=== PATIENT | male | born 1950 | race Caucasian/White ===

== ENCOUNTER 2018-10-16 20:17 | Outpatient (CLI) | payer OTHER | END 2018-10-16 20:18 | disposition critical access hospital (66) | LOC: EMS 20:17 | PROVIDERS: ATTEND Surgery | DX: R51 Headache (principal); M25.551 Pain in right hip; R07.81 Pleurodynia; W01.198A Fall on same level from slipping, tripping and stumbling with subsequent striking against other object, initial encounter; Y93.01 Activity, walking, marching and hiking; Y92.002 Bathroom of unspecified non-institutional (private) residence as the place of occurrence of the external cause; Z79.02 Long term (current) use of antithrombotics/antiplatelets | CPT/HCPCS: A0425; A0427 ==

== ENCOUNTER 2018-10-16 20:38 | Emergency (ER) | payer OTHER ==
--- NOTE | 2018-10-16 20:45 | ED Physician Documentation ---
PD HPI Fall - Stated complaint Stated Complaint: GLF, FACIAL SWELLING, [place]UR[place], DIZZY - History obtained from History obtained from: Patient, Family - History of Present Illness Mechanism of injury: Slipped Fall distance: Standing position Where injury occurred: Home Timing - onset: Today (tonight) Injury(ies) location: Head, Face Quality of pain: Pain Associated symptoms: Neck pain. No: LOC, AMS, Amnesia Contributing factors: Anticoagulated Recently seen: Other (dental extraction yesterday) - Additional information Additional information: slipped and fell when he walked into the bathroom at home, fell into the adjacent bathtub. He denies LOC, c/o left facial pain and left-sided headache. BS 410 by medics. He is on Plavix. Review of Systems Eyes: reports: Reviewed and negative Throat: reports: Dental pain / toothache (mild pain and swelling left jaw (dental extraction yesterday)) Cardiac: reports: Reviewed and negative Respiratory: reports: Reviewed and negative GI: reports: Reviewed and negative Musculoskeletal: reports: Neck pain, Pain with weight bearing Neurologic: reports: Focal weakness (left-sided weakness (chronic due to CVA)), Headache, Head injury. denies: Generalized weakness, Numbness, LOC PD PAST MEDICAL HISTORY - Past Medical History Past Medical History: Yes Cardiovascular: Hypertension Neuro: CVA Endocrine/Autoimmune: Type 2 diabetes - Past Surgical History Past Surgical History: No - Present Medications Home Medications: Ambulatory Orders Medication Instructions Recorded Confirmed Acetaminophen 2 tab PO BID 10/16/18 10/16/18 Atorvastatin Calcium 20 mg PO DAILY PM 10/16/18 10/16/18 Carvedilol 2 tab PO BID 10/16/18 10/16/18 Clopidogrel [Plavix] 75 mg PO DAILY 10/16/18 10/16/18 Duloxetine HCl 60 mg PO DAILY 10/16/18 10/16/18 Folic Acid 1 mg PO DAILY 10/16/18 10/16/18 Glipizide [Glipizide Xl] 2.5 mg PO BID 10/16/18 10/16/18 Hydroxychloroquine [Plaquenil] 2 tab PO DAILY 10/16/18 10/16/18 Latanoprost/Pf [Latanoprost 0.005% 1 drops OP DAILY PM 10/16/18 10/16/18 Eye Drop] Loratadine 10 mg PO DAILY 10/16/18 10/16/18 Losartan [Cozaar] 10/16/18 Methotrexate 10/16/18 Methylphenidate HCl 20 mg PO BID 10/16/18 10/16/18 [Methylphenidate HCl ER] Oxymetazoline HCl [Afrin] 15 ml NS 10/16/18 Polyethylene Glycol 3350 [Miralax] 1 packet PO PRN PRN 10/16/18 10/16/18 Pregabalin [Lyrica] 100 mg PO BID 10/16/18 10/16/18 Psyllium [Metamucil] 1 packet PO DAILY 10/16/18 10/16/18 Tamsulosin [Flomax] 0.4 mg PO DAILY PM 10/16/18 10/16/18 Tramadol HCl 50 mg PO PRN PRN 10/16/18 10/16/18 buPROPion HCl [Bupropion HCl] 3 tab PO DAILY 10/16/18 10/16/18 sulfaSALAzine [Azulfidine] 500 mg PO BID 10/16/18 10/16/18 - Allergies Allergies/Adverse Reactions: Allergies Allergy/AdvReac Type Severity Reaction Status Date / Time ciprofloxacin Allergy Unknown Verified 10/16/18 21:08 hydrochlorothiazide Allergy Unknown Verified 10/16/18 21:08 ketoconazole Allergy Unknown Verified 10/16/18 21:08 metoclopramide Allergy Unknown Verified 10/16/18 21:08 - Living Situation Living Situation: reports: With family Living Arrangement: reports: At home PD ED PE NORMAL - Vitals Vital signs reviewed: Yes - General General: Alert and oriented X 3, No acute distress, Well developed/nourished - HEENT HEENT: PERRL, EOMI - Neck Neck: No bony TTP - Cardiac Cardiac: RRR, No murmur - Respiratory Respiratory: No respiratory distress, Clear bilaterally - Abdomen Abdomen: Soft, Non tender - Back Back: No spinal TTP - Derm Derm: Normal color, Warm and dry - Extremities Extremities: No deformity, No tenderness to palpate, No edema - Neuro Neuro: Alert and oriented X 3, strategic communications specialist 2-12 intact, No sensory deficit, Normal speech, Other (mild LUE/LLE weakness (4/5), not new per patient) Eye Opening: Spontaneous Motor: Obeys Commands Verbal: Oriented GCS Score: 15 Results - Vitals Vitals: Oxygen O2 Source Room air - Labs Labs: Laboratory Tests 10/16/18 10/16/18 10/16/18 20:51 20:51 23:50 WBC 11.6 H RBC 4.99 Hgb 15.7 Hct 46.3 MCV 92.8 MCH 31.5 H MCHC 33.9 RDW 12.4 Plt Count 141 MPV 10.9 Neut # (Auto) 8.6 H Lymph # (Auto) 2.0 [place] # (Auto) 0.8 Eos # (Auto) 0.1 Baso # (Auto) 0.0 Absolute Nucleated RBC 0.00 Nucleated RBC % 0.0 Sodium 129 L Potassium 4.2 Chloride 93 L Carbon Dioxide 24 Anion Gap 12.0 BUN 55 H Creatinine 2.1 H Estimated GFR (MDRD) 32 L Glucose 416 H POC Whole Bld Glucose 370 H Calcium 9.2 - Rads (name of study) CT head Radiology: Prelim report reviewed, See rad report CT cervical spine Radiology: Prelim report reviewed, See rad report CT facial bones Radiology: Prelim report reviewed, See rad report PD MEDICAL DECISION MAKING - ED course Complexity details: reviewed results, re-evaluated patient, considered differential, d/w patient, d/w family Departure - Departure Disposition: 01 Home, Self Care Clinical Impression: Hyperglycemia Fall Qualifiers: Encounter type: initial encounter Qualified Code(s): W19.XXXA - Unspecified fall, initial encounter Condition: Good Health Concerns: fall, head injury, high blood sugar, low blood pressure Plan of Treatment: IV fluids, insulin. Follow up with primary care provider, return if worse Care Goals: improvement in blood sugar levels, prevention of recurrence of fall Assessment: see diagnosis Instructions: ED Hyperglycemia Diabetic, ED Fall Uncertain Cause, ED Insufficiency Renal Comments: Follow up with your primary care provider. You need to discuss the high blood sugar as well as the abnormal kidney tests. Your kidney tests today are as follows: BUN: 55 creatinine: 2.1 Discharge Date/Time: 10/17/18 00:53
[2018-10-16 21:05] LABS: BASOPHILS % (AUTO) 0.3 %; EOSINOPHILS # (AUTO) 0.1 10^3/uL (0.0-0.7); EOSINOPHILS % (AUTO) 0.4 %; HGB - HEMOGLOBIN 15.7 g/dL (14.0-18.0); LYMPHOCYTES % (AUTO) 17.1 %; MEAN CORPUSCULAR HEMOGLOBIN 31.5 pg (27.0-31.0); MEAN CORPUSCULAR HGB CONC 33.9 g/dL (32.0-36.0); MEAN CORPUSCULAR VOLUME 92.8 fL (80.0-94.0); MEAN PLATELET VOLUME 10.9 fL (7.4-11.4); MONOCYTES # (AUTO) 0.8 10^3/uL (0.0-1.0); MONOCYTES % (AUTO) 7.2 %; NEUTROPHILS # (AUTO) 8.6 10^3/uL (1.5-6.6); NEUTROPHILS % (AUTO) 74.7 %; PLT - PLATELET COUNT 141 10^3/uL (130-450); RED BLOOD COUNT 4.99 10^6/uL (4.70-6.10); RED CELL DISTRIBUTION WIDTH 12.4 % (12.0-15.0); WHITE BLOOD COUNT 11.6 x10^3/uL (4.8-10.8)
[2018-10-16 21:13] LABS: CALCIUM 9.2 mg/dL (8.5-10.3); CREATININE 2.1 mg/dL (0.6-1.2)
--- NOTE | 2018-10-16 21:39 | CT Report ---
Reason: fall, head injury, on Plavix Procedure Date: 10/16/2018 Accession Number: [id number] / [id number] Procedure: CT - HEAD WO CPT Code: FULL RESULT: EXAM: CT HEAD EXAM DATE: 10/16/2018 09:20 PM. CLINICAL HISTORY: 68-year-old male. Fall, head injury, on Plavix. COMPARISON: None. TECHNIQUE: Multiaxial CT images were obtained from the foramen magnum to the vertex. Reformats: Sagittal and coronal. IV contrast: None. In accordance with CT protocol optimization, one or more of the following dose reduction techniques were utilized for this exam: automated exposure control, adjustment of mA and/or KV based on patient size, or use of iterative reconstructive technique. FINDINGS: Parenchyma: No intraparenchymal hemorrhage. No evidence of mass, midline shift, or CT findings of acute infarction. [place]-white differentiation is distinct. Diffuse chronic microangiopathic white matter changes are evident. Chronic infarction inferior right basal ganglia and mesial right temporal lobe. Extraaxial Spaces: Normal for age. No subdural or epidural collections identified. Ventricles: The ventricles and cortical sulci are enlarged, consistent with age-related tissue loss. Sinuses and orbits: Imaged paranasal sinuses, orbits, and mastoids show no significant abnormality. Bones: No evidence of fracture or calvarial defect. Other: None. IMPRESSION: Generalized age-related cortical atrophic changes without evidence of acute intracranial abnormality. Chronic infarction inferior right basal ganglia and mesial right temporal lobe. RADIA
--- NOTE | 2018-10-16 21:58 | CT Report ---
Reason: fall, left facial injury Procedure Date: 10/16/2018 Accession Number: [id number] / [id number] Procedure: CT - MAXILLOFACIAL WO CPT Code: FULL RESULT: EXAM: CT MAXILLOFACIAL WITHOUT CONTRAST EXAM DATE: 10/16/2018 09:20 PM. CLINICAL HISTORY: Fall, left facial injury. COMPARISONS: None. TECHNIQUE: Thin-section axial images were acquired of the face without contrast. Post-processing: Coronal and sagittal reformats. Other: None. In accordance with CT protocol optimization, one or more of the following dose reduction techniques were utilized for this exam: automated exposure control, adjustment of mA and/or KV based on patient size, or use of iterative reconstructive technique. FINDINGS: Soft Tissue: The infratemporal fossa and parapharyngeal spaces are unremarkable. Orbits: Symmetric and unremarkable. Bones: No fracture or bone lesion. Temporomandibular Joints: The temporomandibular joints are symmetric and normally located. Sinuses: Normal. No mucosal thickening or fluid levels. Other: None. IMPRESSION: No evidence of maxillofacial fracture. RADIA
--- NOTE | 2018-10-16 22:00 | CT Report ---
Reason: fall, neck pain Procedure Date: 10/16/2018 Accession Number: [id number] / [id number] Procedure: CT - CERVICAL SPINE WO CPT Code: FULL RESULT: EXAM: CT CERVICAL SPINE WITHOUT CONTRAST DATE: 10/16/2018 09:20 PM. HISTORY: 68-year-old on blood thinners with fall presenting with neck pain. Evaluate for cervical pathology. COMPARISONS: None. TECHNIQUE: Thin-section axial images were acquired of the cervical spine without contrast. Post-processing: Coronal and sagittal reformats. Other: None. In accordance with CT protocol optimization, one or more of the following dose reduction techniques were utilized for this exam: automated exposure control, adjustment of mA and/or KV based on patient size, or use of iterative reconstructive technique. FINDINGS: Alignment: Straightening of the normal cervical lordosis. No scoliosis or spondylolisthesis. Bones: No fracture or bone lesion. There is fusion of the right C3-C4 facet. Interspace Levels/Facets: C1-C2: Small posterior pannus with slight indentation of the thecal sac. C2-C3: Small central disk osteophyte complex. Bilateral uncovertebral osteophyte and arthritic facet disease, greater on the left. Mild spinal canal stenosis. Mild left neural foraminal narrowing. C3-C4: Small broad-based disk osteophyte complex. Bilateral uncovertebral osteophyte and arthritic facet disease. Mild to moderate spinal canal stenosis. Moderate right and mild to moderate left neural foraminal narrowing. C4-C5: Small broad-based disk osteophyte complex. Bilateral uncovertebral osteophyte and arthritic facet disease. Mild to moderate spinal canal stenosis. Mild bilateral neural foraminal narrowing. C5-C6: Small broad-based disk osteophyte complex. Bilateral uncovertebral osteophyte and arthritic facet disease. Mild spinal canal stenosis. No definite neural foraminal narrowing. C6-C7: Small broad-based disk osteophyte complex. Bilateral arthritic facet disease. Mild spinal canal stenosis. No definite neural foraminal narrowing. C7-T1: Bilateral arthritic facet disease. No spinal canal stenosis. No definite neural foraminal narrowing. Musculature: Normal. No fatty atrophy. Other: There is a left thyroid lobe hypodense lesion seen measuring up to 10 mm ( series 15, image 77). Minimal pleural parenchymal scarring of the visualized lung apices. IMPRESSION: 1. No definite acute fracture or traumatic subluxation seen. 2. Straightening of the normal cervical lordosis. 3. Multilevel degenerative changes, as detailed above. RADIA
[2018-10-16] MEDS ORDERED: SODIUM CHLORIDE 0.9% 500 ML IV STA (23:48)
[2018-10-16] MEDS ORDERED: INSULIN REGULAR HUMAN 100 UNIT/1 ML 10 ML MDV IVP STA (23:58)
[2018-10-17 00:21] VITALS: BP 119/69
[2018-10-17] MEDS ORDERED: MAGNESIUM CITRATE 296 ML BOTTLE PO STA (00:33)
== END 2018-10-17 00:53 | disposition home or self-care (01) ==
LOC: EDUNIT# → ED 20:38
DX: E11.65 Type 2 diabetes mellitus with hyperglycemia (principal); Z79.84 Long term (current) use of oral hypoglycemic drugs; M54.2 Cervicalgia; R51 Headache; W01.198A Fall on same level from slipping, tripping and stumbling with subsequent striking against other object, initial encounter; Y93.01 Activity, walking, marching and hiking; Y92.002 Bathroom of unspecified non-institutional (private) residence as the place of occurrence of the external cause; M25.78 Osteophyte, vertebrae; I69.354 Hemiplegia and hemiparesis following cerebral infarction affecting left non-dominant side; I10 Essential (primary) hypertension; Z79.02 Long term (current) use of antithrombotics/antiplatelets
CPT/HCPCS: 36415; 70450; 70486; 72125; 80048; 85025; 96360; 99283; 99285; A9270; J1815

== ENCOUNTER 2020-02-26 08:32 | Outpatient (CLI) | payer OTHER | END 2020-02-26 08:33 | disposition short-term general hospital (02) | LOC: EMS 08:32 | PROVIDERS: ATTEND Surgery | DX: M54.2 Cervicalgia (principal); R51.9 Headache, unspecified; S51.012A Laceration without foreign body of left elbow, initial encounter; W06.XXXA Fall from bed, initial encounter; Y92.10 Unspecified residential institution as the place of occurrence of the external cause | CPT/HCPCS: A0425; A0429 ==

== ENCOUNTER 2020-05-07 09:43 | Outpatient (CLI) | payer OTHER ==
--- OUTSIDE RECORDS SUMMARY | 2020-05-11 01:53 | EXTERNAL MEDICAL SUMMARY RPT | Continuity of Care Document ---
:1950 Demographics Phone Unavailable Preferred Language Eritrean Marital Status Unknown Orthodoxy Affiliation Unknown Race Unknown Ethnic Group Unknown Author Organization [place] Address [address] [place] [address] Phone Care Team Providers Name Role Phone Bot[place] Unavailable Unavailable Problems date description facility Never smoked tobacco (finding) [facility] Patient Education [facility] Finding [facility] Allergies date description facility ciprofloxacin [facility] hydrochlorothiazide [facility] ketoconazole [facility] metformin [facility] metoclopramide [facility] ATORVASTATIN [facility] DIPHENHYDRAMINE [facility] FLUVASTATIN [facility] PRAVASTATIN [facility] SIMVASTATIN [facility] SULFADIAZINE [facility] NO KNOWN ALLERGIES [facility] NO KNOWN ENVIRONMENTAL ALLERGIES [facility] metformin [facility]opramide [facility] Procedures date description facility 2020-02-26 00:00:00 [facility] date description facility 2020-02-26 00:00:00 [facility] date description facility 2020-02-26 00:00:00 General Physician [facility] date description facility 2020-02-26 00:00:00 [facility] Results Social History date description facility [id number] Never smoked tobacco (finding) [facility] Social History date description facility [id number] Never smoked tobacco (finding) [facility] date description facility [id number]
== END 2020-05-07 09:44 | disposition critical access hospital (66) ==
LOC: EMS 09:43
PROVIDERS: ATTEND Surgery
DX: M54.5 Low back pain (principal); R10.9 Unspecified abdominal pain
CPT/HCPCS: A0425; A0429

== ENCOUNTER 2020-05-07 10:01 | Emergency (ER) | payer OTHER ==
[2020-05-07] MEDS ORDERED: SODIUM CHLORIDE 0.9% 1,000 ML IV STA (10:36)
[2020-05-07] MEDS ORDERED: KETOROLAC 30 MG/ML VIAL IVP STA (10:36)
--- NOTE | 2020-05-07 10:39 | ED Physician Documentation ---
PD HPI BACK PAIN - Stated complaint Stated Complaint: RT SIDE ABD PX - Chief complaint Chief Complaint: Back Pain - History obtained from History obtained from: Patient - History of Present Illness Timing - onset: How many months ago (1) Timing - duration: Months (1) Timing - details: Abrupt onset, Still present Pain level max: 10 Pain level now: 7 Location: Mid, Right Quality: Pain, Spasm, Sharp Associated symptoms: No: Fever, Weakness, Numbness, Incontinent of urine, Unable to urinate, Hematuria, Incontinent of stool Improves with: Rest, Position Worsened by: Movement Contributing factors: Twisting Similar symptoms before: No diagnosis Recently seen: Not recently seen - Additional information Additional information: 69-year-old diabetic male who is s/p CVA with some left hemiparesis has developed some pain in his right flank that started when he was on the commode about a month ago and bent to the right side to pick something up and he had a sharp spasm of pain in his back and he has had undulating symptoms since then. Today he went to get into his refrigerator and bent over and had severe acute pain in his back on the right side. He called the ambulance and was brought to the hospital for treatment and evaluation. Patient states that he has not otherwise been ill he has not had vomiting or diarrhea. He does not check his blood sugar. He denies any fever or cough. Review of Systems Constitutional: denies: Fever, Chills, Myalgias Ears: denies: Ear pain Nose: denies: Rhinorrhea / runny nose, Congestion Throat: denies: Sore throat Cardiac: denies: Chest pain / pressure, Palpitations Respiratory: denies: Dyspnea, Cough GI: denies: Abdominal Pain, Nausea, Vomiting, Diarrhea : reports: Frequency. denies: Dysuria Skin: denies: Rash Musculoskeletal: reports: Back pain. denies: Neck pain, Extremity pain Neurologic: reports: Focal weakness (persistent to the left side not changed.). denies: Generalized weakness PD PAST MEDICAL HISTORY - Past Medical History Cardiovascular: Hypertension Neuro: CVA Endocrine/Autoimmune: Type 2 diabetes HEENT: Glaucoma Musculoskeletal: Osteoarthritis, Rheumatoid arthritis - Past Surgical History Past Surgical History: No General: Cholecystectomy, Colonoscopy, EGD Ortho: Carpal Tunnel surgery, Spine surgery HEENT: Cataracts - Present Medications Home Medications: Ambulatory Orders Medication Instructions Recorded Confirmed Atorvastatin Calcium 20 mg PO DAILY PM 10/16/18 10/16/18 Clopidogrel [Plavix] 75 mg PO DAILY 10/16/18 10/16/18 Folic Acid 1 mg PO DAILY 10/16/18 10/16/18 Glipizide [Glipizide Xl] 2.5 mg PO BID 10/16/18 10/16/18 Hydroxychloroquine [Plaquenil] 2 tab PO DAILY 10/16/18 10/16/18 Losartan [Cozaar] 10/16/18 Methotrexate 10/16/18 Methylphenidate HCl 20 mg PO BID 10/16/18 10/16/18 [Methylphenidate HCl ER] Tamsulosin [Flomax] 0.4 mg PO DAILY PM 10/16/18 10/16/18 Tramadol HCl 50 mg PO PRN PRN 10/16/18 10/16/18 buPROPion HCL [Bupropion HCl] 3 tab PO DAILY 10/16/18 10/16/18 sulfaSALAzine [Azulfidine] 500 mg PO BID 10/16/18 10/16/18 Amox/Clav 875/125 [Augmentin] 1 each PO Q12H #14 tablet 05/07/20 Hydrocodone/Acetaminophen [[place] 1 - 2 each PO Q6HR PRN #14 tablet 05/07/20 5-325 Tablet] Melatonin 3 mg PO 05/07/20 05/07/20 Ondansetron [Zuplenz] 4 mg PO 05/07/20 - Allergies Allergies/Adverse Reactions: Allergies Allergy/AdvReac Type Severity Reaction Status Date / Time ciprofloxacin Allergy Unknown Verified 10/16/18 21:08 hydrochlorothiazide Allergy Unknown Verified 10/16/18 21:08 ketoconazole Allergy Unknown Verified 10/16/18 21:08 metformin Allergy Unknown Verified 05/07/20 10:36 metoclopramide Allergy Unknown Verified 10/16/18 21:08 - Social History Does the pt smoke?: No Smoking Status: Never smoker Does the pt drink ETOH?: No - Immunizations Immunizations are current?: Yes PD ED PE NORMAL - Vitals Vital signs reviewed: Yes (normal ) - General General: Alert and oriented X 3, No acute distress, Well developed/nourished - HEENT HEENT: Atraumatic, PERRL, EOMI - Neck Neck: Supple, no meningeal sign, No bony TTP - Cardiac Cardiac: RRR, No murmur - Respiratory Respiratory: No respiratory distress, Clear bilaterally - Abdomen Abdomen: Normal bowel sounds, Soft, Non tender - Back Back: No spinal TTP, Other (There is tenderness to the right flank to palpation and with movement. The pain seems more medial than the kidney both sonographically and physically ) - Derm Derm: Normal color, Warm and dry, No rash - Extremities Extremities: No deformity, No edema - Neuro Neuro: Alert and oriented X 3, resource paraprofessional 2-12 intact, Normal speech, Other (Left black- paresis is appreciated on the Left upper ext >>than the left lower ext. ) Eye Opening: Spontaneous Motor: Obeys Commands Verbal: Oriented GCS Score: 15 - Psych Psych: Normal mood, Normal affect Results - Vitals Vitals: Vital Signs - 24 hr 05/07/20 05/07/20 10:12 11:09 Temperature 36.9 C Heart Rate 79 74 Respiratory 18 16 Rate Blood Pressure 129/71 170/89 H O2 Saturation 99 97 Oxygen O2 Source Room air - Labs Labs: Laboratory Tests 05/07/20 05/07/20 05/07/20 11:04 11:04 11:17 WBC 7.2 RBC 4.77 Hgb 14.4 Hct 43.2 MCV 90.6 MCH 30.2 MCHC 33.3 RDW 13.9 Plt Count 125 L MPV 10.4 Neut # (Auto) 5.0 Lymph # (Auto) 1.5 [place] # (Auto) 0.6 Eos # (Auto) 0.0 Baso # (Auto) 0.0 Absolute Nucleated RBC 0.00 Nucleated RBC % 0.0 Sodium 136 Potassium 4.7 Chloride 100 L Carbon Dioxide 25 Anion Gap 11.0 BUN 13 Creatinine 1.0 Estimated GFR (MDRD) 74 L Glucose 212 H Calcium 9.2 Total Bilirubin 0.5 AST 22 ALT 20 Alkaline Phosphatase 72 Total Protein 6.7 Albumin 3.8 Globulin 2.9 Albumin/Globulin Ratio 1.3 Lipase 22 Urine Color YELLOW Urine Clarity HAZY Urine pH 7.0 Ur Specific [place] 1.020 Urine Protein NEGATIVE Urine Glucose (UA) 500 H Urine Ketones NEGATIVE Urine Occult Blood NEGATIVE Urine Nitrite NEGATIVE Urine Bilirubin NEGATIVE Urine Urobilinogen 0.2 (NORMAL) Ur Leukocyte Esterase MODERATE H Urine RBC 0-5 Urine WBC >25 H Ur Squamous Epith Cells NONE SEEN Urine Bacteria Moderate H Ur Microscopic Review INDICATED Urine Culture Comments INDICATED - Rads (name of study) CT ab/pel without Radiology: Prelim report reviewed (Impression: 1. No kidney stones. No hydronephrosis. 2. Normal appendix. 3. Bladder calculus measuring 1.4 cm. Bladder is distended. Prostamegaly.), EMP read indepedently, See rad report Procedures - Bedside sono Bedside sono by EMP: With bedside ultrasound the right kidney is imaged it is sonographically nontender the tenderness does appear to be more medial over the back than the kidney itself. There is no evidence of hydronephrosis. PD MEDICAL DECISION MAKING - ED course Complexity details: reviewed old records, reviewed results, re-evaluated patient, considered differential, d/w patient ED course: 69-year-old diabetic male s/p CVA with left hemiparesis has developed right flank pain of about 1 months duration that appears to be movement related. Additionally the patient is found to have infection in the urine. He also has urinary retention with a postvoid residual of over 800 mL. A Rock catheter is placed he is given a gram of Rocephin intravenously we will treat infection and leave the catheter in place. The patient has had urinary retention previously and does have a urologist. Departure - Departure Disposition: 01 Home, Self Care Clinical Impression: Urinary retention, Flank pain, Dehydration Urinary tract infection Qualifiers: Urinary tract infection type: acute cystitis Hematuria presence: without hematuria Qualified Code(s): N30.00 - Acute cystitis without hematuria Condition: Stable Instructions: ED Dehydration, ED Flank Pain Uncertain Cause, ED Catheter Care Rock, ED Retention Urinary Male, ED UTI Cystitis Male Follow-Up: Mega Kaye MD [Provider Admit Priv/Credential] - Prescriptions: Hydrocodone/Acetaminophen [[place] 5-325 Tablet] 1 - 2 each PO Q6HR PRN #14 tablet PRN Reason: Pain Amox/Clav 875/125 [Augmentin] 1 each PO Q12H #14 tablet
[2020-05-07 11:10] VITALS: BP 170/89
[2020-05-07 11:16] LABS: BASOPHILS % (AUTO) 0.4 %; EOSINOPHILS % (AUTO) 0.6 %; HGB - HEMOGLOBIN 14.4 g/dL (14.0-18.0); LYMPHOCYTES # (AUTO) 1.5 10^3/uL (1.5-3.5); LYMPHOCYTES % (AUTO) 20.8 %; MEAN CORPUSCULAR HEMOGLOBIN 30.2 pg (27.0-31.0); MEAN CORPUSCULAR HGB CONC 33.3 g/dL (32.0-36.0); MEAN CORPUSCULAR VOLUME 90.6 fL (80.0-94.0); MEAN PLATELET VOLUME 10.4 fL (7.4-11.4); MONOCYTES # (AUTO) 0.6 10^3/uL (0.0-1.0); MONOCYTES % (AUTO) 8.1 %; NEUTROPHILS % (AUTO) 69.8 %; PLT - PLATELET COUNT 125 10^3/uL (130-450); RED BLOOD COUNT 4.77 10^6/uL (4.70-6.10); RED CELL DISTRIBUTION WIDTH 13.9 % (12.0-15.0); WHITE BLOOD COUNT 7.2 x10^3/uL (4.8-10.8)
--- NOTE | 2020-05-07 11:20 | CT Report ---
PROCEDURE: Abdomen/Pelvis WO INDICATIONS: R flank pain TECHNIQUE: Noncontrast 5 mm thick sections acquired from the diaphragms to the symphysis. 5 mm coronal and sagi ttal reformats were then performed. For radiation dose reduction, the following was used: automated exposure control, adjustment of mA and/or kV according to patient size. COMPARISON: None. FINDINGS: Image quality: Excellent. ABDOMEN: Lung bases: Lung bases are clear. Heart size is normal. Solid organs: Liver and spleen are normal in size. Gallbladder is surgically absent. Pancreas is n ormal in contours. No adrenal nodules. Kidneys are normal in size, without hydronephrosis or nephro lithiasis. Renal artery vascular calcifications. Peritoneum and bowel: Unenhanced bowel loops demonstrate normal wall thickness and caliber. Normal a ppendix. No free fluid or air. Nodes and vessels: No retroperitoneal or mesenteric adenopathy by size criteria. Aorta and inferior vena cava are normal in caliber. Duplicated right inferior artery. Miscellaneous: Small fat-containing periumbilical hernia. PELVIS: Genitourinary: Bladder is mildly distended. Tiny urachal remnant. Bladder calculus measuring 1.4 cm. Prostatomegaly. Penile calcifications. Miscellaneous: No inguinal hernias or adenopathy. Bones: No suspicious bony lesions. No vertebral body compression fractures. IMPRESSION: 1. No kidney stones. No hydronephrosis. 2. Normal appendix. 3. Bladder calculus measuring 1.4 cm. Bladder is distended. Prostatomegaly. Reviewed by: Ubaldo Garcia MD on 05/07/2020 10:19 AM [facility] Approved by: Ubaldo Garcia MD on 05/07/2020 10:19 AM [facility] Station ID: [id number]
[2020-05-07 11:24] LABS: BILIRUBIN,URINE NEGATIVE (NEGATIVE); GLUCOSE, URINE (UA) 500 mg/dL (NEGATIVE); KETONES,URINE (UA) NEGATIVE (NEGATIVE); LEUKOCYTE ESTERASE, URINE MODERATE (NEGATIVE); NITRITE,URINE NEGATIVE (NEGATIVE); OCCULT BLOOD,URINE NEGATIVE (NEGATIVE); PROTEIN,URINE NEGATIVE (NEGATIVE); UROBILINOGEN,URINE 0.2 (NORMAL) E.U./dL (NORMAL)
[2020-05-07 11:25] LABS: CLARITY,URINE HAZY (CLEAR)
[2020-05-07 11:28] LABS: ALBUMIN 3.8 g/dL (3.2-5.5); ALBUMIN/GLOBULIN RATIO 1.3 (1.0-2.2); BILIRUBIN,TOTAL 0.5 mg/dL (0.2-1.0); CALCIUM 9.2 mg/dL (8.5-10.3); TOTAL PROTEIN 6.7 g/dL (6.7-8.2)
[2020-05-07 11:33] LABS: BACTERIA,URINE Moderate /HPF (None Seen); RBC,URINE 0-5 /HPF (0-5); SQUAMOUS EPITHELIAL CELL,UR NONE SEEN (<= Few)
[2020-05-07] MEDS ORDERED: cefTRIAXone 1 GM in SODIUM CHLORIDE 0.9% MINIBAG 100 ML IV STA (11:55)
--- OUTSIDE RECORDS SUMMARY | 2020-05-11 01:50 | EXTERNAL MEDICAL SUMMARY RPT | Continuity of Care Document ---
:1950 Demographics Phone Unavailable Preferred Language Tajik Marital Status Unknown Hoahaoism Affiliation Unknown Race Unknown Ethnic Group Unknown Author Organization [facility] Address [address] [place] [address] Phone Care Team Providers Name Role Phone [place] Unavailable Unavailable Problems date description facility Never smoked tobacco (finding) [facility] Patient Education [facility] Finding [facility] Allergies date description facility ciprofloxacin [facility] hydrochlorothiazide [facility] ketoconazole [facility] metformin [facility] metoclopramide [facility] ATORVASTATIN [facility] DIPHENHYDRAMINE [facility] FLUVASTATIN SODIUM [facility] PRAVASTATIN [facility] SIMVASTATIN [facility] SULFADIAZINE [facility] NO KNOWN ALLERGIES [facility] NO KNOWN ENVIRONMENTAL ALLERGIES [facility] OTHER [facility] NO KNOWN ALLERGIES [facility] CEFUROXIME AXETIL [facility] GABAPENTIN [facility] CYCLOBENZAPRINE [facility] DICYCLOMINE [facility] LISINOPRIL [facility] OXYMETAZOLINE-MENTHOL [facility] hydrochlorothiazide [facility] ciprofloxacin [facility] ketoconazole [facility] metformin [facility] metoclopramide [facility] Procedures date description facility 2020-02-26 00:00:00 [facility] date description facility 2020-02-26 00:00:00 [facility] date description facility 2020-02-26 00:00:00 General Physician [facility] date description facility 2020-02-26 00:00:00 [facility] Results Social History date description facility [id number] Never smoked tobacco (finding) [facility] Social History date description facility [id number] Never smoked tobacco (finding) [facility] date description facility [id number]
== END 2020-05-07 13:15 | disposition home or self-care (01) ==
LOC: EDUNIT# → ED 10:01
DX: N30.00 Acute cystitis without hematuria (principal); R33.9 Retention of urine, unspecified; N21.0 Calculus in bladder; E86.0 Dehydration; I69.354 Hemiplegia and hemiparesis following cerebral infarction affecting left non-dominant side; I10 Essential (primary) hypertension; E11.9 Type 2 diabetes mellitus without complications; Z79.84 Long term (current) use of oral hypoglycemic drugs; Z79.02 Long term (current) use of antithrombotics/antiplatelets
CPT/HCPCS: 36415; 51702; 74176; 80053; 81001; 81003; 81599; 83690; 85025; 87077; 87086; 87181; 99284

== ENCOUNTER 2020-05-14 11:30 | Outpatient (CLI) | payer MEDICARE, OTHER | END 2020-05-14 11:31 | disposition critical access hospital (66) | LOC: EMS 11:30 | PROVIDERS: ATTEND Surgery | DX: R11.0 Nausea (principal) | CPT/HCPCS: A0425; A0429 ==

== ENCOUNTER 2020-05-14 11:48 | Emergency (ER) | payer MEDICARE, OTHER ==
[2020-05-14] MEDS ORDERED: oxyCODONE 5 MG TABLET PO STA (12:18)
--- NOTE | 2020-05-14 12:18 | ED Physician Documentation ---
PD HPI Fall - Stated complaint Stated Complaint: FLANK PX - Chief complaint Chief Complaint: UTI - History obtained from History obtained from: Patient, EMS - Additional information Additional information: 69-year-old gentleman with history of diabetes, stroke with left-sided deficits, history of prostate cancer presents by ambulance complaining of about 2 weeks of episodic right-sided flank pain. He was seen here for same a week ago. He had pyuria, a CT of the abdomen pelvis demonstrating a bladder calculus measuring 1.4 cm with a distended bladder. Relatively unremarkable blood work. Rock catheter was placed at that time and he was given a dose of Rocephin. Subsequent to that was started on Augmentin and hydrocodone as needed for pain. The culture grew Morganella, they only commented on sensitivity to Zosyn. Otherwise they were unable to elucidate any sensitivities. He continues to have right flank pain, episodic and sharp and nonradiating. He also has felt lightheaded since then and has fallen several times. He hurt his right low back in one of the falls. He hit his head, noting he is on Plavix, but does not really feel like his head is injured per se. Review of Systems Ten Systems: 10 systems reviewed and negative Constitutional: denies: Fever, Chills Nose: reports: Reviewed and negative Throat: reports: Reviewed and negative Cardiac: reports: Reviewed and negative Respiratory: reports: Reviewed and negative GI: reports: Reviewed and negative PD PAST MEDICAL HISTORY - Past Medical History Cardiovascular: Hypertension Neuro: CVA Endocrine/Autoimmune: Type 2 diabetes HEENT: Glaucoma Musculoskeletal: Osteoarthritis, Rheumatoid arthritis - Past Surgical History Past Surgical History: No General: Cholecystectomy, Colonoscopy, EGD Ortho: Carpal Tunnel surgery, Spine surgery HEENT: Cataracts - Present Medications Home Medications: Ambulatory Orders Medication Instructions Recorded Confirmed Atorvastatin Calcium 20 mg PO DAILY PM 10/16/18 10/16/18 Clopidogrel [Plavix] 75 mg PO DAILY 10/16/18 10/16/18 Folic Acid 1 mg PO DAILY 10/16/18 10/16/18 Glipizide [Glipizide Xl] 2.5 mg PO BID 10/16/18 10/16/18 Hydroxychloroquine [Plaquenil] 2 tab PO DAILY 10/16/18 10/16/18 Losartan [Cozaar] 10/16/18 Methotrexate 10/16/18 Methylphenidate HCl 20 mg PO BID 10/16/18 10/16/18 [Methylphenidate HCl ER] Tamsulosin [Flomax] 0.4 mg PO DAILY PM 10/16/18 10/16/18 Tramadol HCl 50 mg PO PRN PRN 10/16/18 10/16/18 buPROPion HCL [Bupropion HCl] 3 tab PO DAILY 10/16/18 10/16/18 sulfaSALAzine [Azulfidine] 500 mg PO BID 10/16/18 10/16/18 Amox/Clav 875/125 [Augmentin] 1 each PO Q12H #14 tablet 05/07/20 Hydrocodone/Acetaminophen [Deep Run 1 - 2 each PO Q6HR PRN #14 tablet 05/07/20 5-325 Tablet] Melatonin 3 mg PO 05/07/20 05/07/20 Ondansetron [Zuplenz] 4 mg PO 05/07/20 HYDROcod/ACETAM 5/325 [[place] 5/325] 1 - 2 tab PO Q6H PRN #15 tablet 05/14/20 - Allergies Allergies/Adverse Reactions: Allergies Allergy/AdvReac Type Severity Reaction Status Date / Time ciprofloxacin Allergy Unknown Verified 10/16/18 21:08 hydrochlorothiazide Allergy Unknown Verified 10/16/18 21:08 ketoconazole Allergy Unknown Verified 10/16/18 21:08 metformin Allergy Unknown Verified 05/07/20 10:36 metoclopramide Allergy Unknown Verified 10/16/18 21:08 - Social History Does the pt smoke?: No Smoking Status: Never smoker Does the pt drink ETOH?: No Does the pt have substance abuse?: No - Immunizations Immunizations are current?: Yes PD ED PE NORMAL - Vitals Vital signs reviewed: Yes - General General: Alert and oriented X 3, Other (He has a mild right gaze preference and is weak in the left upper extremity.) - HEENT HEENT: PERRL - Neck Neck: Supple, no meningeal sign, No bony TTP - Cardiac Cardiac: RRR, No murmur - Respiratory Respiratory: No respiratory distress, Clear bilaterally - Abdomen Abdomen: Normal bowel sounds, Soft, Non tender - Back Back: Other (Mild tenderness of the right CVA and right paralumbar musculature, hip and pelvis are nontender.) - Derm Derm: Normal color, Warm and dry - Extremities Extremities: No edema, No calf tenderness / cord - Neuro Neuro: Alert and oriented X 3, Normal speech Results - Vitals Vitals: Vital Signs - 24 hr 05/14/20 05/14/20 05/14/20 11:51 11:57 12:54 Temperature 36.9 C Heart Rate 78 78 79 Respiratory 16 16 16 Rate Blood Pressure 140/68 H 137/79 H 149/85 H O2 Saturation 99 96 97 Oxygen O2 Source Room air - Labs Labs: Laboratory Tests 05/14/20 05/14/20 05/14/20 12:12 12:12 12:46 WBC 5.8 RBC 4.69 L Hgb 14.0 Hct 43.2 MCV 92.1 MCH 29.9 MCHC 32.4 RDW 14.5 Plt Count 111 L MPV 10.0 Neut # (Auto) 3.8 Lymph # (Auto) 1.4 L Jerome # (Auto) 0.5 Eos # (Auto) 0.1 Baso # (Auto) 0.0 Absolute Nucleated RBC 0.00 Nucleated RBC % 0.0 Sodium 139 Potassium 4.3 Chloride 101 Carbon Dioxide 28 Anion Gap 10.0 BUN 11 Creatinine 1.0 Estimated GFR (MDRD) 74 L Glucose 326 H Calcium 8.8 Total Bilirubin 0.5 AST 23 ALT 19 Alkaline Phosphatase 79 Total Protein 6.6 L Albumin 3.7 Globulin 2.9 Albumin/Globulin Ratio 1.3 Lipase 30 Urine Color YELLOW Urine Clarity CLEAR Urine pH 7.5 Ur Specific [place] 1.015 Urine Protein NEGATIVE Urine Glucose (UA) >=1000 H Urine Ketones NEGATIVE Urine Occult Blood NEGATIVE Urine Nitrite NEGATIVE Urine Bilirubin NEGATIVE Urine Urobilinogen 0.2 (NORMAL) Ur Leukocyte Esterase NEGATIVE Ur Microscopic Review NOT INDICATED Urine Culture Comments NOT INDICATED - Rads (name of study) CT Head Radiology: EMP read contemporaneously (NAD) CT A/P Radiology: EMP read contemporaneously (Bladder calcification and thick bladder wall. No other acute findings.) PD MEDICAL DECISION MAKING - ED course ED course: 69-year-old gentleman presents from assisted living having had several falls in the setting of recent pyelonephritis. Urinalysis is now cleared up. He has hyperglycemia but the remainder of his labs are relatively unremarkable. White count only 5. CT imaging of the head done for head injury was negative and abdomen and pelvis for both recheck of the flank pain as well as back injury were negative except for persistent bladder calcification. Departure - Departure Disposition: 01 Home, Self Care Clinical Impression: Flank pain Fall Qualifiers: Encounter type: initial encounter Qualified Code(s): W19.XXXA - Unspecified fall, initial encounter Back contusion Qualifiers: Encounter type: initial encounter Laterality: right Qualified Code(s): S20.221A - Contusion of right back wall of thorax, initial encounter Head injury Qualifiers: Encounter type: initial encounter Qualified Code(s): S09.90XA - Unspecified injury of head, initial encounter Condition: Good Record reviewed to determine appropriate education?: Yes Instructions: ED Low Back Pain Injury Follow-Up: Mega Kaye MD [Provider Admit Priv/Credential] - Prescriptions: HYDROcod/ACETAM 5/325 [Deep Run 5/325] 1 - 2 tab PO Q6H PRN #15 tablet PRN Reason: Pain Comments: No evidence of persistent UTI but with finish out antibiotic prescription given to you by Dr. Anderson. On the last visit was recommended he follow-up with a urologist and he still should given the presence of the bladder stone. Return if worsening. Drink plenty of fluids.
[2020-05-14 12:25] LABS: BASOPHILS % (AUTO) 0.5 %; EOSINOPHILS # (AUTO) 0.1 10^3/uL (0.0-0.7); EOSINOPHILS % (AUTO) 0.9 %; LYMPHOCYTES # (AUTO) 1.4 10^3/uL (1.5-3.5); LYMPHOCYTES % (AUTO) 24.1 %; MEAN CORPUSCULAR HEMOGLOBIN 29.9 pg (27.0-31.0); MEAN CORPUSCULAR HGB CONC 32.4 g/dL (32.0-36.0); MEAN CORPUSCULAR VOLUME 92.1 fL (80.0-94.0); MONOCYTES # (AUTO) 0.5 10^3/uL (0.0-1.0); MONOCYTES % (AUTO) 9.3 %; NEUTROPHILS # (AUTO) 3.8 10^3/uL (1.5-6.6); PLT - PLATELET COUNT 111 10^3/uL (130-450); RED BLOOD COUNT 4.69 10^6/uL (4.70-6.10); RED CELL DISTRIBUTION WIDTH 14.5 % (12.0-15.0); WHITE BLOOD COUNT 5.8 x10^3/uL (4.8-10.8)
[2020-05-14 12:35] LABS: ALBUMIN 3.7 g/dL (3.2-5.5); ALBUMIN/GLOBULIN RATIO 1.3 (1.0-2.2); BILIRUBIN,TOTAL 0.5 mg/dL (0.2-1.0); CALCIUM 8.8 mg/dL (8.5-10.3); TOTAL PROTEIN 6.6 g/dL (6.7-8.2)
[2020-05-14] MEDS ORDERED: SODIUM CHLORIDE 0.9% 1,000 ML IV STA (12:35)
[2020-05-14] MEDS ORDERED: IOVERSOL 320 100 ML VIAL IVP ONE ×2 (12:47→14:37)
[2020-05-14 12:55] LABS: BILIRUBIN,URINE NEGATIVE (NEGATIVE); GLUCOSE, URINE (UA) >=1000 mg/dL (NEGATIVE); KETONES,URINE (UA) NEGATIVE (NEGATIVE); LEUKOCYTE ESTERASE, URINE NEGATIVE (NEGATIVE); NITRITE,URINE NEGATIVE (NEGATIVE); OCCULT BLOOD,URINE NEGATIVE (NEGATIVE); PH,URINE 7.5 PH (5.0-7.5); PROTEIN,URINE NEGATIVE (NEGATIVE); UROBILINOGEN,URINE 0.2 (NORMAL) E.U./dL (NORMAL)
[2020-05-14 12:56] LABS: CLARITY,URINE CLEAR (CLEAR)
--- NOTE | 2020-05-14 13:55 | CT Report ---
PROCEDURE: HEAD WO INDICATIONS: head injury TECHNIQUE: Noncontrast 4.5 mm thick angled axial sections acquired from the foramen magnum to the vertex. For r adiation dose reduction, the following was used: automated exposure control, adjustment of mA and/or kV according to patient size. COMPARISON: CT head 10/17/2018 FINDINGS: Image quality: Excellent. The ventricular system and cortical sulci demonstrate atrophy, consistent for patient's stated age. There are areas of hypodensity in the periventricular and subcortical white matter. There is no acut e intra or extra-axial fluid collection. No acute hemorrhage, mass lesion or midline shift. Brainst em is unremarkable. Globes are symmetrical. Sinuses are aerated. Osseous structures are intact. IMPRESSION: 1. No acute intracranial process. 2. Moderate atrophy and chronic microvascular ischemic changes. Reviewed by: Dalila Damico MD on 05/14/2020 1:54 PM PST Approved by: Dalila Damico MD on 05/14/2020 1:54 PM PST Station ID: [id number]
--- NOTE | 2020-05-14 14:03 | CT Report ---
PROCEDURE: Abdomen/Pelvis W INDICATIONS: R flank pain. IV only CONTRAST: IV CONTRAST: Optiray 320 ml: 100 PO CONTRAST: *NO PO CONTRAST TECHNIQUE: After the administration of IV contrast, 5 mm thick sections acquired from the diaphragms to the symp hysis. 5 mm thick coronal and sagittal reformats were acquired. For radiation dose reduction, the f ollowing was used: automated exposure control, adjustment of mA and/or kV according to patient size. COMPARISON: CT abdomen pelvis 05/07/2020 FINDINGS: Image quality: Excellent. ABDOMEN: Lung bases: Minimal left effusion, unchanged. Heart size is normal. Solid organs: Liver and spleen are normal in size and enhancement. Gallbladder has been removed Bi liary system is non dilated. Pancreas enhances normally. No adrenal nodules. Kidneys demonstrate n ormal size and enhancement, without hydronephrosis. Peritoneum and bowel: Bowel loops demonstrate normal wall thickness and caliber. No free fluid or a ir. Appendix is normal. Nodes and vessels: No retroperitoneal or mesenteric adenopathy by size criteria. Aorta and inferior vena cava are normal in size. Miscellaneous: No ventral hernias. PELVIS: Genitourinary: Bladder is collapsed with a Rock catheter. Diffusely thickened wall is noted. Previo us calcification noted within the bladder base remains present. No new calcifications are identified within the bladder. Prostate gland is enlarged. Miscellaneous: Fat-containing inguinal hernias are present. Bones: No suspicious bony lesions. No vertebral body compression fractures. Multiple chronic appea ring left-sided rib fractures are again noted. IMPRESSION: 1. No visualized cause of right flank pain. 2. Persistent appearance of bladder calcification. 3. Bladder demonstrates diffusely thickened wall suspected to be secondary to incomplete distention g iven presence of Rock catheter. However, recommend clinical correlation to cystitis which can have a similar appearance. Reviewed by: Dalila Damico MD on 05/14/2020 2:02 PM PST Approved by: Dalila Damico MD on 05/14/2020 2:02 PM PST Station ID: [id number]
[2020-05-14] MEDS ORDERED: HYDROcod/ACETAM 5/325 MG TABLET PO STA (14:09)
[2020-05-14 14:32] VITALS: BP 138/78
== END 2020-05-14 15:00 | disposition home or self-care (01) ==
LOC: EDUNIT# → ED 11:48
DX: R10.9 Unspecified abdominal pain (principal); R42 Dizziness and giddiness; S09.90XA Unspecified injury of head, initial encounter; S20.221A Contusion of right back wall of thorax, initial encounter; W19.XXXA Unspecified fall, initial encounter; Y92.099 Unspecified place in other non-institutional residence as the place of occurrence of the external cause; E11.65 Type 2 diabetes mellitus with hyperglycemia; Z79.84 Long term (current) use of oral hypoglycemic drugs; I10 Essential (primary) hypertension; N32.89 Other specified disorders of bladder; I69.934 Monoplegia of upper limb following unspecified cerebrovascular disease affecting left non-dominant side; Z85.46 Personal history of malignant neoplasm of prostate; Z79.02 Long term (current) use of antithrombotics/antiplatelets
CPT/HCPCS: 36415; 70450; 74177; 80053; 81003; 83690; 85025; 96360; 96361; 99284; A9270; Q9967; 81001; 87086

== ENCOUNTER 2020-10-03 16:10 | Outpatient (CLI) | payer OTHER ==
--- NOTE | 2020-10-03 16:56 | XRAY Report ---
PROCEDURE: Hips 3-4V BILAT INDICATIONS: LEFT SIDED PAIN TECHNIQUE: AP pelvis and one view of each hip were acquired. COMPARISON: None FINDINGS: Bones: No fractures or dislocations. No suspicious bony lesions. The visualized pelvic ring appear s intact. Mild hip joint space narrowing and periarticular osteophyte formation bilaterally. Soft tissues: No suspicious soft tissue calcifications or masses. IMPRESSION: Bilateral hip osteoarthritis. No acute fracture. No osseous lesion. If symptoms and/or clinical suspi cion for pathology continue, further assessment with repeat plain films, or advanced imaging (e.g., C T, MRI, or bone scan) is recommended for further assessment. Reviewed by: Stewart Hernandez MD on 10/03/2020 4:54 PM PDT Approved by: Stewart Hernandez MD on 10/03/2020 4:54 PM PDT Station ID: [id number]
--- NOTE | 2020-10-03 16:59 | XRAY Report ---
PROCEDURE: Lumbar Spine 2 View INDICATIONS: LEFT SIDED PAIN TECHNIQUE: 2 views of the lumbar spine were acquired. COMPARISON: None. FINDINGS: Bones: 5 [id number] vertebrae are present. Multilevel disc space narrowing and endplate osteof charles formation. Facet hypertrophy throughout the mid and lower lumbar spine. There is normal bony alig nment. No vertebral body compression fractures. No suspicious bony lesions. Soft tissues: Overlying bowel gas pattern is normal. No suspicious soft tissue calcifications. IMPRESSION: Multilevel degenerative disc and facet disease. No acute fracture. No osseous lesion. If symptoms and/or clinical suspicion for pathology continue, further assessment with repeat plain film s, or advanced imaging (e.g., CT, MRI, or bone scan) is recommended for further assessment. Reviewed by: Stewart Hernandez MD on 10/03/2020 4:58 PM PDT Approved by: Stewart Hernandez MD on 10/03/2020 4:58 PM PDT Station ID: [id number]
== END 2020-10-03 16:11 | disposition home or self-care (01) ==
LOC: DI.N 16:10
PROVIDERS: ATTEND Physician Assistant
DX: M47.816 Spondylosis without myelopathy or radiculopathy, lumbar region (principal); M51.36 Other intervertebral disc degeneration, lumbar region; M16.0 Bilateral primary osteoarthritis of hip

== ENCOUNTER 2021-03-30 10:07 | Day surgery (SDC) | payer OTHER ==
[~2021-03-30 10:07] MED LIST: BRIMONIDINE 0.2% OPHTH DROPS 5 ML ONE; BSS/LIDOCAINE/EPINEPHRINE 1 ML SYRINGE ONE; CYCLOPENTOLATE 1% OPHTH DROPS 2 ML ONE; EPINEPHrine 1 MG/ML AMP ONE; KETOROLAC 0.45% OPHTH DROPS ONE; PHENYLEPHRINE 2.5% OPHTH 2 ML DROPS ONE; PROPARACAINE 0.5% OPHTH DROPS 15 ML ONE; TIMOLOL 0.5% OPHTH DROPS ONE; TRIAMCIN/MOXIFLOX OPHTHALMIC 0.6 ML VIAL IO ONE; VANCOMYCIN OPHTHALMI 8MG/0.8ML 8 MG/0.8 ML SYRINGE IO ONE
[2021-03-30] MEDS ORDERED: LACTATED RINGERS 1,000 ML IV ONE (10:12)
[2021-03-30] MEDS ORDERED: fentaNYL 100 MCG/2 ML VIAL ONE (10:56)
[2021-03-30] MEDS ORDERED: MIDAZOLAM 2 MG/2 ML VIAL ONE (10:56)
--- NOTE | 2021-03-30 11:11 | ANESTHESIA ---
Pre-Anesthesia VS, & Labs - Diagnosis left cataract - Procedure left cataract extraction with intraocular lens Vital Signs: Temp Pulse Resp BP Pulse Ox 36 C L 93 18 124/76 98 03/30/21 10:17 03/30/21 10:17 03/30/21 10:17 03/30/21 10:17 03/30/21 10:17 Height: 5 ft 4 in Weight (kg): 91 kg Body Mass Index: 34.4 BMI Classification: Obese - NPO >8 hours - Lab Results Current Lab Results: Laboratory Tests 03/30/21 10:49: POC Whole Bld Glucose 163 H Home Medications and Allergies Atorvastatin Calcium 20 mg PO DAILY PM 10/16/18 Clopidogrel [Plavix] 75 mg PO DAILY 10/16/18 Folic Acid 1 mg PO DAILY 10/16/18 Glipizide [Glipizide Xl] 2.5 mg PO BID 10/16/18 Hydroxychloroquine [Plaquenil] 2 tab PO DAILY 10/16/18 Losartan [Cozaar] 10/16/18 Methotrexate [Methotrexate Sodium] 10/16/18 Methylphenidate HCl [Methylphenidate HCl ER] 20 mg PO BID 10/16/18 Tamsulosin [Flomax] 0.4 mg PO DAILY PM 10/16/18 Tramadol HCl 50 mg PO PRN PRN 10/16/18 buPROPion HCL [Bupropion HCl] 3 tab PO DAILY 10/16/18 sulfaSALAzine [Azulfidine] 500 mg PO BID 10/16/18 Melatonin 3 mg PO 05/07/20 Ondansetron [Zuplenz] 4 mg PO 05/07/20 Allergies/Adverse Reactions: Allergies Allergy/AdvReac Type Severity Reaction Status Date / Time ciprofloxacin Allergy Unknown Verified 10/16/18 21:08 hydrochlorothiazide Allergy Unknown Verified 10/16/18 21:08 ketoconazole Allergy Unknown Verified 10/16/18 21:08 metformin Allergy Unknown Verified 05/07/20 10:36 metoclopramide Allergy Unknown Verified 10/16/18 21:08 Anes History & Medical History - Anesthetic History Anesthesia Complications: reports: No previous complications - Medical History Cardiovascular: reports: Hypertension, High cholesterol Pulmonary: reports: CPAP use Gastrointestinal: reports: GERD, Colon polyps Urinary: reports: Frequency, Other Neuro: reports: CVA Musculoskeletal: reports: Osteoarthritis, Rheumatoid arthritis Endocrine/Autoimmune: reports: Type 2 diabetes Skin: reports: None Smoking Status: Never smoker - Surgical History General: reports: Cholecystectomy, Colonoscopy, EGD Eyes Ears Nose Throat (EENT): reports: Cataracts, Tonsil/Adenoidectomy Orthopedic: reports: Carpal Tunnel surgery, Spine surgery Exam General: Alert Dental: WNL Respiratory: Lungs clear Cardiovascular: Regular rate Plan Anesthesia Type: MAC Consent for Procedure(s) Verified and Reviewed: Yes Code Status: Attempt Resuscitation ASA classification: 3-Severe systemic disease Is this case an emergency?: No
[2021-03-30] MEDS ORDERED: BRIMONIDINE 0.2% OPHTH DROPS 5 ML OPTH ONE (11:20)
[2021-03-30] MEDS ORDERED: EPINEPHrine 1 MG/ML AMP IR ONE (11:21)
[2021-03-30] MEDS ORDERED: TRIAMCIN/MOXIFLOX OPHTHALMIC 0.6 ML VIAL IO ONE (11:21)
[2021-03-30] MEDS ORDERED: BSS/LIDOCAINE/EPINEPHRINE 1 ML SYRINGE IO ONE (11:21)
[2021-03-30] MEDS ORDERED: TIMOLOL 0.5% OPHTH DROPS OPTH ONE (11:21)
[2021-03-30] MEDS ORDERED: PROPARACAINE 0.5% OPHTH DROPS 15 ML EACHEYE ONE (11:22)
[2021-03-30] MEDS ORDERED: VANCOMYCIN OPHTHALMI 8MG/0.8ML 8 MG/0.8 ML SYRINGE IO ONE (11:22)
[2021-03-30] MEDS ORDERED: LACTATED RINGERS 850 ML IV ONE (11:39)
[2021-03-30 12:02] VITALS: BP 128/79
--- NOTE | 2021-03-30 12:09 | OPERATIVE REPORT ---
Operative Report - Other Other Information/Narrative: Date of Surgery: Preop Dx: Complex, visually significant cataract left eye. Complex due to small pupil requiring mechanical dilation using a Malyugin ring. This was the first cataract surgery. Postop Dx: Same Procedure: Phacoemulsification with posterior chamber intraocular lens implant left eye Surgeon: Dr. Tino Robertson Anesthesia: Monitored anesthesia care Complications: None Operative Indications: This is a 70-year-old M with progressive vision loss in the left eye due to 2+ nuclear sclerotic, 2+ posterior subcapsular, and vacuolar cataract. Best corrected visual acuity was 20/125 with glare to 20/630 vision in the left eye. Indications for surgery were: - Overall decrease in vision - Difficulty seeing words on a computer screen - Difficulty reading - Difficulty seeing words, closed captions, or game scores on TV - Difficulty seeing street signs - Difficulty driving in low light or at night - Difficulty driving at night because of headlights from other vehicles - Difficulty with glare or bright lights in any situation - Difficulty tracking a golf ball - Decreased acuity with firearms The patient was consented at length concerning the risks and benefits of cataract surgery after which the patient expressed a desire to proceed with surgery. Operative Procedure: The patient was taken into OR#3 and placed under monitored anesthesia care. A surgical time-out was conducted confirming correct patient, correct procedure, and correct surgical site. The patient was given topical anesthesia and then prepped and draped in the usual sterile fashion. The eye was entered at the 6 and 3 oclock positions. Intracameral Shugarcaine was injected into the anterior chamber followed by a dispersive viscoelastic. A Malyugin ring was injected into the anterior chamber and engaged with the pupillary margin at four points to expand the pupil. A continuous-tear curvilinear capsulorhexis was performed. The nucleus was hydrodissected and phacoemulsified. The cortex was evacuated using automated infusion and aspiration. A cohesive viscoelastic was injected into the capsular bag and a 25.5 diopter intraocular lens was inserted into the bag. The Malyugin ring was disengaged from the pupillary margin and removed from the anterior chamber. Infusion and aspiration were used to evacuate the viscoelastic materials from the eye. The wounds were hydrated and the eye inflated to physiologic pressure using balanced salt solution. Approximately 0.25ml of a mixture of triamcinolone and moxifloxacin was injected trans-sclerally into the vitreous in the inferotemporal quadrant using a 30 gauge cannula. An additional 0.55ml of a mixture of triamcinolone, moxifloxacin, and vancomycin was injected subconjunctivally in the superior quadrant for infection and inflammation prophylaxis. Wound integrity was checked with Weck-Lupe sponges. The patient was taken from the operating room in good condition and given post-op instructions.
--- NOTE | 2021-03-30 12:50 | ANESTHESIA POST OP EVALUATION ---
Anesthesia Post Eval - Post Anesthesia Eval Vitals: Last Vital Signs Temp 36.7 C 03/30/21 12:01 Pulse 74 03/30/21 12:01 Resp 12 03/30/21 12:01 BP 128/79 03/30/21 12:01 Pulse Ox 96 03/30/21 12:01 CV Function Including HR & BP: Stable Pain Control: Satisfactory Nausea & Vomiting: Negative Mental Status: Baseline Respiratory Status: Airway Patent Hydration Status: Satisfactory Anesthesia Complications: None
== END 2021-03-30 10:08 | disposition home or self-care (01) ==
LOC: SDS 10:07
PROVIDERS: ATTEND Ophthalmology
DX: E11.36 Type 2 diabetes mellitus with diabetic cataract (principal); H25.812 Combined forms of age-related cataract, left eye; I10 Essential (primary) hypertension; E78.00 Pure hypercholesterolemia, unspecified; K21.9 Gastro-esophageal reflux disease without esophagitis; M06.9 Rheumatoid arthritis, unspecified; R35.0 Frequency of micturition; E66.9 Obesity, unspecified; Z68.34 Body mass index [BMI] 34.0-34.9, adult; Z79.02 Long term (current) use of antithrombotics/antiplatelets; Z86.73 Personal history of transient ischemic attack (TIA), and cerebral infarction without residual deficits; Z79.84 Long term (current) use of oral hypoglycemic drugs; Z79.899 Other long term (current) drug therapy; Z87.891 Personal history of nicotine dependence
CPT/HCPCS: 66982; A9270; J3490; J7120

== ENCOUNTER 2021-06-29 08:36 | Day surgery (SDC) | payer OTHER ==
[~2021-06-29 08:36] MED LIST changes: -BRIMONIDINE 0.2% OPHTH DROPS 5 ML ONE; -BSS/LIDOCAINE/EPINEPHRINE 1 ML SYRINGE ONE; -EPINEPHrine 1 MG/ML AMP ONE; -TIMOLOL 0.5% OPHTH DROPS ONE; -TRIAMCIN/MOXIFLOX OPHTHALMIC 0.6 ML VIAL IO ONE; -VANCOMYCIN OPHTHALMI 8MG/0.8ML 8 MG/0.8 ML SYRINGE IO ONE
[2021-06-29] MEDS ORDERED: LACTATED RINGERS 1,000 ML IV ONE (09:44)
--- NOTE | 2021-06-29 09:48 | ANESTHESIA ---
Pre-Anesthesia VS, & Labs - Diagnosis right eye cataract - Procedure Right CATIOL Vital Signs: Temp Pulse Resp BP Pulse Ox 36.5 C 80 18 124/62 97 06/29/21 09:15 06/29/21 09:15 06/29/21 09:15 06/29/21 09:15 06/29/21 09:15 Height: 5 ft 3 in Weight (kg): 93.4 kg Body Mass Index: 36.4 BMI Classification: Obese - NPO >8 hours - Lab Results Current Lab Results: Laboratory Tests 06/29/21 09:30: POC Whole Bld Glucose 135 H Lab results reviewed: Yes Home Medications and Allergies Atorvastatin Calcium 20 mg PO DAILY PM 10/16/18 Clopidogrel [Plavix] 75 mg PO DAILY 10/16/18 Folic Acid 1 mg PO DAILY 10/16/18 Glipizide [Glipizide Xl] 2.5 mg PO BID 10/16/18 Hydroxychloroquine [Plaquenil] 2 tab PO DAILY 10/16/18 Losartan [Cozaar] 25 mg PO DAILY 10/16/18 Methotrexate [Methotrexate Sodium] 1 ea PO DAILY 10/16/18 Methylphenidate HCl [Methylphenidate HCl ER] 20 mg PO BID 10/16/18 Tamsulosin [Flomax] 0.4 mg PO DAILY PM 10/16/18 Tramadol HCl 50 mg PO PRN PRN 10/16/18 buPROPion HCL [Bupropion HCl] 3 tab PO DAILY 10/16/18 sulfaSALAzine [Azulfidine] 500 mg PO BID 10/16/18 Melatonin 3 mg PO DAILY 05/07/20 Atorvastatin [Lipitor] 1 ea PO DAILY 03/30/21 Calcium Carbonate [Calcium] 1 ea PO DAILY 03/30/21 Cyanocobalamin (Vitamin B-12) [Vitamin B-12] 1 ea PO DAILY 03/30/21 traZODone [Desyrel] 3 ea PO DAILY 03/30/21 Allergies/Adverse Reactions: Allergies Allergy/AdvReac Type Severity Reaction Status Date / Time ciprofloxacin Allergy Unknown Verified 10/16/18 21:08 hydrochlorothiazide Allergy Unknown Verified 10/16/18 21:08 ketoconazole Allergy Unknown Verified 10/16/18 21:08 metformin Allergy Unknown Verified 05/07/20 10:36 metoclopramide Allergy Unknown Verified 10/16/18 21:08 Anes History & Medical History - Anesthetic History Anesthesia Complications: reports: No previous complications Family history of Anesthesia Complications: Denies Family history of Malignant Hyperthermia: Denies - Medical History Cardiovascular: reports: Hypertension, High cholesterol Pulmonary: reports: Sleep apnea Gastrointestinal: reports: None Urinary: reports: None Neuro: reports: CVA Musculoskeletal: reports: Rheumatoid arthritis Endocrine/Autoimmune: reports: Type 2 diabetes Skin: reports: None Smoking Status: Never smoker - Surgical History General: reports: Cholecystectomy Eyes Ears Nose Throat (EENT): reports: Cataracts Orthopedic: reports: Carpal Tunnel surgery, Other Exam General: Alert, Oriented x3, Cooperative, No acute distress Dental: WNL Mouth Openin Fingerbreadth Neck Mobility: Normal Mallampati classification: II Plan Anesthesia Type: MAC Consent for Procedure(s) Verified and Reviewed: Yes Code Status: Attempt Resuscitation ASA classification: 3-Severe systemic disease Is this case an emergency?: No
[2021-06-29] MEDS ORDERED: MIDAZOLAM 2 MG/2 ML VIAL ONE (10:13)
[2021-06-29] MEDS ORDERED: EPINEPHrine 1 MG/ML AMP IR ONE (10:17)
[2021-06-29] MEDS ORDERED: BRIMONIDINE 0.2% OPHTH DROPS 5 ML OPTH ONE (10:17)
[2021-06-29] MEDS ORDERED: TRIAMCIN/MOXIFLOX OPHTHALMIC 0.6 ML VIAL IO ONE ×2 (10:18→13:26)
[2021-06-29] MEDS ORDERED: PROPARACAINE 0.5% OPHTH DROPS 15 ML EACHEYE ONE (10:18)
[2021-06-29] MEDS ORDERED: TIMOLOL 0.5% OPHTH DROPS OPTH ONE (10:18)
[2021-06-29] MEDS ORDERED: VANCOMYCIN OPHTHALMI 8MG/0.8ML 8 MG/0.8 ML SYRINGE IO ONE (10:18)
[2021-06-29] MEDS ORDERED: BSS/LIDOCAINE/EPINEPHRINE 1 ML SYRINGE IO ONE (10:18)
[2021-06-29] MEDS ORDERED: ACETYLCHOLINE 20 MG/2 ML KIT IO ONE ×2 (10:45→10:48)
[2021-06-29] MEDS ORDERED: LACTATED RINGERS 300 ML IV ONE (10:57)
[2021-06-29] MEDS ORDERED: ACETAMINOPHEN 1,000 MG/100 ML 100 ML IV ONE (10:58)
--- NOTE | 2021-06-29 11:13 | OPERATIVE REPORT ---
Operative Report - Other Other Information/Narrative: Date of Surgery: 06/29/21 Preop Dx: Complex, visually significant cataract right eye. Complex due to small pupil requiring mechanical dilation using a Malyugin ring. Cataract surgery was performed in the left eye on . Postop Dx: Same Procedure: Phacoemulsification with posterior chamber intraocular lens implant right eye Surgeon: Dr. Tino Robertson Anesthesia: Monitored anesthesia care Complications: Unplanned vitrectomy due to posterior capsule rupture. Operative Indications: This is a 70-year-old M with progressive vision loss in the right eye due to 2+ nuclear sclerotic, 2+ posterior subcapsular, and vacuolar cataract. Best corrected visual acuity was 20/60 with glare to 20/630 vision in the right eye. Indications for surgery were: - Overall decrease in vision - Difficulty seeing words on a computer screen - Difficulty reading - Difficulty seeing words, closed captions, or game scores on TV - Difficulty seeing street signs - Difficulty driving in low light or at night - Difficulty driving at night because of headlights from other vehicles - Difficulty with glare or bright lights in any situation - Difficulty tracking a golf ball - Decreased acuity with firearms The patient was consented at length concerning the risks and benefits of cataract surgery after which the patient expressed a desire to proceed with surgery. Operative Procedure: The patient was taken into OR#3 and placed under monitored anesthesia care. A surgical time-out was conducted confirming correct patient, correct procedure, and correct surgical site. The patient was given topical anesthesia and then prepped and draped in the usual sterile fashion. The eye was entered at the 6 and 3 oclock positions. Intracameral Shugarcaine was injected into the anterior chamber followed by a dispersive viscoelastic. A Malyugin ring was injected into the anterior chamber and engaged with the pupillary margin at four points to expand the pupil. A continuous-tear curvilinear capsulorhexis was performed. The nucleus was hydrodissected and phacoemulsified. During cortex evacuation using automated infusion the posterior capsule was ruptured. A dispersive viscoelastic was injected through the rupture to push back vitreous. The Malyugin ring was disengaged from the pupillary margin and removed from the anterior chamber. A cohesive viscoelastic was injected into the sulcus and a 23.5 diopter 3-piece intraocular lens was inserted into the sulcus and rotated into place using a Kuglin hook. Dry vitrectomy was needed to remove vitreous from the wound and to properly position the IOL centrally. Infusion and aspiration were used to evacuate the viscoelastic materials from the eye. Miochol was injected into the anterior chamber to bring the pupil down over the IOL and additional dry vitrectomy was needed to round out the pupil. The wounds were hydrated and the eye inflated to physiologic pressure using balanced salt solution. Approximately 0.25ml of a mixture of triamcinolone and moxifloxacin was injected trans-sclerally into the vitreous in the inferotemporal quadrant using a 30 gauge cannula. An additional 0.55ml of a mixture of triamcinolone, moxifloxacin, and vancomycin was injected subconjunctivally in the superior quadrant for infection and inflammation prophylaxis. Wound integrity was checked with Weck-Lupe sponges. The patient was taken from the operating room in good condition, the complication was explained to the patient and his daughter, and they were given post-op instructions.
--- NOTE | 2021-06-29 11:30 | ANESTHESIA POST OP EVALUATION ---
Anesthesia Post Eval - Post Anesthesia Eval Vitals: Last Vital Signs Temp 36.6 C 06/29/21 11:10 Pulse 73 06/29/21 11:10 Resp 16 06/29/21 11:10 BP 140/76 H 06/29/21 11:10 Pulse Ox 97 06/29/21 11:10 CV Function Including HR & BP: Stable Pain Control: Satisfactory Nausea & Vomiting: Negative Mental Status: Baseline Respiratory Status: Airway Patent Hydration Status: Satisfactory Anesthesia Complications: None
[2021-06-29 11:31] VITALS: BP 156/79
[2021-06-29] MEDS ORDERED: TIMOLOL 0.5% OPHTH DROPS ONE (13:26)
[2021-06-29] MEDS ORDERED: BRIMONIDINE 0.2% OPHTH DROPS 5 ML ONE (13:26)
[2021-06-29] MEDS ORDERED: BSS/LIDOCAINE/EPINEPHRINE 1 ML VIAL ONE (13:27)
== END 2021-06-29 08:37 | disposition home or self-care (01) ==
LOC: SDS 08:36
PROVIDERS: ATTEND Ophthalmology
DX: E11.36 Type 2 diabetes mellitus with diabetic cataract (principal); H25.811 Combined forms of age-related cataract, right eye; Z98.42 Cataract extraction status, left eye; H59.88 Other intraoperative complications of eye and adnexa, not elsewhere classified; E66.9 Obesity, unspecified; Z68.36 Body mass index [BMI] 36.0-36.9, adult; G47.30 Sleep apnea, unspecified; Z79.84 Long term (current) use of oral hypoglycemic drugs
CPT/HCPCS: 66982; 67036; A9270; J0131; J3490; J7120; V2632

== ENCOUNTER 2022-04-09 13:30 | Emergency (ER) | payer OTHER ==
[2022-04-09 13:44] VITALS: BP 130/107
--- NOTE | 2022-04-09 13:44 | ED Physician Documentation ---
History of Present Illness - Stated complaint Stated Complaint: GLF/HEAD INJ - History obtained from History obtained from: Patient, EMS - History of Present Illness Timing: Today Pain level max: 5 Pain level now: 5 - Additonal information Additional information: Patient is a 71-year-old male who was brought in to the emergency department by EMS after a ground-level fall today. He was getting out of the shower when he tripped on a tub, fell forward and struck his head on the toilet. No loss of consciousness. No vomiting. Placed in a cervical collar by EMS. No numbness or tingling. No hip, neck or back pain. Mild nausea. No seizure activity. He is on Plavix. Otherwise asymptomatic. Review of Systems Ten Systems: 10 systems reviewed and negative Constitutional: denies: Fever, Chills Ears: denies: Ear pain Nose: denies: Rhinorrhea / runny nose, Congestion Throat: denies: Sore throat Cardiac: denies: Chest pain / pressure, Palpitations Respiratory: denies: Cough GI: reports: Nausea. denies: Vomiting PD PAST MEDICAL HISTORY - Past Medical History Past Medical History: Yes Cardiovascular: Hypertension, High cholesterol Respiratory: Sleep apnea Neuro: CVA Endocrine/Autoimmune: Type 2 diabetes GI: None : None HEENT: None Psych: None Musculoskeletal: Rheumatoid arthritis Derm: None - Past Surgical History Past Surgical History: No General: Cholecystectomy Ortho: Carpal Tunnel surgery, Other HEENT: Cataracts - Present Medications Home Medications: Ambulatory Orders Medication Instructions Recorded Confirmed Atorvastatin Calcium 20 mg PO DAILY PM 10/16/18 03/30/21 Clopidogrel [Plavix] 75 mg PO DAILY 10/16/18 03/30/21 Folic Acid 1 mg PO DAILY 10/16/18 03/30/21 Glipizide [Glipizide Xl] 2.5 mg PO BID 10/16/18 03/30/21 Hydroxychloroquine [Plaquenil] 2 tab PO DAILY 10/16/18 03/30/21 Losartan [Cozaar] 25 mg PO DAILY 10/16/18 03/30/21 Methotrexate [Methotrexate Sodium] 1 ea PO DAILY 10/16/18 03/30/21 Methylphenidate HCl 20 mg PO BID 10/16/18 03/30/21 [Methylphenidate HCl ER] Tamsulosin [Flomax] 0.4 mg PO DAILY PM 10/16/18 03/30/21 Tramadol HCl 50 mg PO PRN PRN 10/16/18 03/30/21 buPROPion HCL [Bupropion HCl] 3 tab PO DAILY 10/16/18 03/30/21 sulfaSALAzine [Azulfidine] 500 mg PO BID 10/16/18 03/30/21 Hydrocodone/Acetaminophen [[place] 1 - 2 each PO Q6HR PRN #14 tablet 05/07/20 03/30/21 5-325 Tablet] Melatonin 3 mg PO DAILY 05/07/20 03/30/21 HYDROcod/ACETAM 5/325 [[place] 5/325] 1 - 2 tab PO Q6H PRN #15 tablet 05/14/20 03/30/21 Atorvastatin [Lipitor] 1 ea PO DAILY 03/30/21 03/30/21 Calcium Carbonate [Calcium] 1 ea PO DAILY 03/30/21 03/30/21 Cyanocobalamin (Vitamin B-12) 1 ea PO DAILY 03/30/21 03/30/21 [Vitamin B-12] traZODone [Desyrel] 3 ea PO DAILY 03/30/21 03/30/21 - Allergies Allergies/Adverse Reactions: Allergies Allergy/AdvReac Type Severity Reaction Status Date / Time ciprofloxacin Allergy Unknown Verified 10/16/18 21:08 hydrochlorothiazide Allergy Unknown Verified 10/16/18 21:08 ketoconazole Allergy Unknown Verified 10/16/18 21:08 metformin Allergy Unknown Verified 05/07/20 10:36 metoclopramide Allergy Unknown Verified 10/16/18 21:08 - Social History Does the pt smoke?: No Smoking Status: Never smoker Does the pt drink ETOH?: No Does the pt have substance abuse?: No - Immunizations Immunizations are current?: Yes PD ED PE NORMAL - Vitals Vital signs reviewed: Yes - General General: Alert and oriented X 3, No acute distress, Well developed/nourished - HEENT HEENT: Atraumatic, PERRL, Ears normal, Moist mucous membranes, Pharynx benign, Other (No scalp hematomas. No abrasions. No palpable skull fractures) - Neck Neck: No bony TTP (No midline tenderness to palpation. No step-off or deformity) - Cardiac Cardiac: RRR, Strong equal pulses - Respiratory Respiratory: No respiratory distress, Clear bilaterally - Abdomen Abdomen: Soft, Non tender, Non distended - Derm Derm: Warm and dry - Extremities Extremities: No deformity, No tenderness to palpate, Normal ROM s pain, No edema, No calf tenderness / cord - Neuro Neuro: Alert and oriented X 3, copy editor 2-12 intact, No motor deficit, No sensory deficit, Normal speech Eye Opening: Spontaneous Motor: Obeys Commands Verbal: Oriented GCS Score: 15 - Psych Psych: Normal mood, Normal affect Results - Vitals Vitals: Vital Signs - 24 hr 04/09/22 13:40 Temperature 37.6 C Heart Rate 74 Respiratory 22 Rate Blood Pressure 130/107 H O2 Saturation 94 Oxygen O2 Source Room air - Rads (name of study) Head CT Radiology: Final report received, See rad report Cervical spine CT Radiology: Final report received, See rad report PD MEDICAL DECISION MAKING - ED course Complexity details: reviewed results, re-evaluated patient, considered differential, d/w patient ED course: No acute findings on head CT or cervical spine CT. Patient is asymptomatic in the emergency department. No focal neurological deficits. GCS 15. Not having any further pain. We will have him follow-up with his PCP for further care. Patient counseled regarding signs and symptoms for which I believe and urgent re-evaluation would be necessary. Patient with good understanding of and agreement to plan and is comfortable going home at this time This document was made in part using voice recognition software. While efforts are made to proofread this document, sound alike and grammatical errors may occur. Departure - Departure Disposition: 01 Home, Self Care Clinical Impression: Fall Qualifiers: Encounter type: initial encounter Qualified Code(s): W19.XXXA - Unspecified fall, initial encounter Head injury Qualifiers: Encounter type: initial encounter Qualified Code(s): S09.90XA - Unspecified injury of head, initial encounter Condition: Good Instructions: ED Head Injury Closed Follow-Up: Provider,Other [Primary Care Provider] - Comments: Thankfully your head CT and cervical spine CT do not show any acute abnormalities. Please follow-up with your doctor for further care. Return if you worsen. There are no broken bones or bleeding inside the brain. Discharge Date/Time: 04/09/22 15:31
--- NOTE | 2022-04-09 14:23 | CT Report ---
PROCEDURE: HEAD WO INDICATIONS: fall, head/neck injury, hit on toilet TECHNIQUE: Noncontrast 4.5 mm thick angled axial sections acquired from the foramen magnum to the vertex. For r adiation dose reduction, the following was used: automated exposure control, adjustment of mA and/or kV according to patient size. COMPARISON: 05/14/2020 FINDINGS: Moderate global cerebral volume loss and mild to moderate chronic microvascular ischemic changes agai n noted. No acute intracranial hemorrhage, abnormal extra-axial fluid collection, mass effect, or mid line shift. [place]-white matter differentiation is maintained. No acute orbital abnormality. Paranasal sinuses and mastoid air cells are predominantly clear. No calvarial or skull base fracture. IMPRESSION: No acute intracranial finding. Reviewed by: Rusty Burks MD on 04/09/2022 2:21 PM PST Approved by: Rusty Burks MD on 04/09/2022 2:21 PM PST Station ID: [id number]
--- NOTE | 2022-04-09 14:25 | CT Report ---
PROCEDURE: CERVICAL SPINE WO INDICATIONS: Trauma, fall head/neck injury, hit on toilet TECHNIQUE: Noncontrast 3 mm thick sections acquired from the skull base to the T4 level. Sagittal and coronal r eformats were then constructed. For radiation dose reduction, the following was used: automated exp osure control, adjustment of mA and/or kV according to patient size. COMPARISON: None. FINDINGS: Image quality: Excellent. Bones: No fractures or dislocations. Visualized superior ribs are intact. Soft tissues: Prevertebral soft tissues are normal in thickness. No paravertebral hematomas. No ap ical pneumothoraces. IMPRESSION: No CT evidence of acute traumatic cervical spine injury. Reviewed by: Rusty Burks MD on 04/09/2022 2:23 PM PST Approved by: Rusty Burks MD on 04/09/2022 2:23 PM PST Station ID: [id number]
== END 2022-04-09 15:31 | disposition home or self-care (01) ==
LOC: EDUNIT# → ED 13:30
DX: S09.90XA Unspecified injury of head, initial encounter (principal); W01.198A Fall on same level from slipping, tripping and stumbling with subsequent striking against other object, initial encounter; E11.9 Type 2 diabetes mellitus without complications; I10 Essential (primary) hypertension; G47.30 Sleep apnea, unspecified
CPT/HCPCS: 99282; 99284

== ENCOUNTER → 2022-04-09 | Outpatient (CLI) | payer OTHER | END | disposition critical access hospital (66) | LOC: EMS 13:10 | DX: S09.90XA Unspecified injury of head, initial encounter (principal); R11.10 Vomiting, unspecified; W01.198A Fall on same level from slipping, tripping and stumbling with subsequent striking against other object, initial encounter; Y93.E1 Activity, personal bathing and showering; Y92.002 Bathroom of unspecified non-institutional (private) residence as the place of occurrence of the external cause; Z79.02 Long term (current) use of antithrombotics/antiplatelets | CPT/HCPCS: A0425; A0429 ==

== ENCOUNTER 2022-04-16 23:38 | Outpatient (CLI) | payer OTHER | END 2022-04-16 23:39 | disposition EMS.NT | LOC: EMS 23:38 | DX: E11.65 Type 2 diabetes mellitus with hyperglycemia (principal) ==

== ENCOUNTER 2022-05-20 18:52 | Outpatient (CLI) | payer OTHER | END 2022-05-20 18:53 | disposition critical access hospital (66) | LOC: EMS 18:52 | DX: M25.552 Pain in left hip (principal); S30.1XXA Contusion of abdominal wall, initial encounter; W01.0XXA Fall on same level from slipping, tripping and stumbling without subsequent striking against object, initial encounter; Y92.003 Bedroom of unspecified non-institutional (private) residence as the place of occurrence of the external cause | CPT/HCPCS: A0425; A0429 ==

== ENCOUNTER 2022-05-20 19:11 | Emergency (ER) | payer OTHER ==
--- NOTE | 2022-05-20 20:28 | ED Physician Documentation ---
History of Present Illness - Stated complaint Stated Complaint: GLF, LEFT SIDE ABD PAIN - Chief complaint Chief Complaint: Trauma Abd - History obtained from History obtained from: Patient, Family - Additonal information Additional information: The patient comes to the emergency department with chief complaint of fall just prior to arrival. The patient has a history of a CVA which is left him with l eft-sided weakness, and he is now wheelchair dependent. He states he was trying to get into his wheelchair when he lost his balance and fell, striking his left flank against the arm of the wheelchair. Patient states he then rolled off the wheelchair and fell to the ground on his right side. The patient states he mainly hurts over his left flank and hip. He does not feel like he injured himself on the right side in any way. He did not hit his head or lose consciousness. He is on Plavix. He was not able to get himself up off the floor, due to his chronic left-sided weakness, and so EMS was summoned to assist him. Review of Systems Constitutional: reports: Reviewed and negative Eyes: reports: Reviewed and negative Ears: reports: Reviewed and negative Nose: reports: Reviewed and negative Throat: reports: Reviewed and negative Cardiac: reports: Reviewed and negative Respiratory: reports: Reviewed and negative GI: reports: Abdominal Pain (Left flank) : reports: Reviewed and negative Skin: reports: Abrasion (s) Musculoskeletal: reports: Reviewed and negative Neurologic: reports: Reviewed and negative. denies: Head injury Psychiatric: reports: Reviewed and negative Endocrine: reports: Reviewed and negative Immunocompromised: reports: Reviewed and negative PD PAST MEDICAL HISTORY - Past Medical History Cardiovascular: Hypertension, High cholesterol Respiratory: Sleep apnea Neuro: CVA Endocrine/Autoimmune: Type 2 diabetes GI: None : None HEENT: None Psych: None Musculoskeletal: Rheumatoid arthritis Derm: None - Past Surgical History Past Surgical History: No General: Cholecystectomy Ortho: Carpal Tunnel surgery, Other HEENT: Cataracts - Present Medications Home Medications: Ambulatory Orders Medication Instructions Recorded Confirmed Atorvastatin Calcium 20 mg PO DAILY PM 10/16/18 03/30/21 Clopidogrel [Plavix] 75 mg PO DAILY 10/16/18 03/30/21 Folic Acid 1 mg PO DAILY 10/16/18 03/30/21 Glipizide [Glipizide Xl] 2.5 mg PO BID 10/16/18 03/30/21 Hydroxychloroquine [Plaquenil] 2 tab PO DAILY 10/16/18 03/30/21 Losartan [Cozaar] 25 mg PO DAILY 10/16/18 03/30/21 Methotrexate [Methotrexate Sodium] 1 ea PO DAILY 10/16/18 03/30/21 Methylphenidate HCl 20 mg PO BID 10/16/18 03/30/21 [Methylphenidate HCl ER] Tamsulosin [Flomax] 0.4 mg PO DAILY PM 10/16/18 03/30/21 Tramadol HCl 50 mg PO PRN PRN 10/16/18 03/30/21 buPROPion HCL [Bupropion HCl] 3 tab PO DAILY 10/16/18 03/30/21 sulfaSALAzine [Azulfidine] 500 mg PO BID 10/16/18 03/30/21 Hydrocodone/Acetaminophen [[place] 1 - 2 each PO Q6HR PRN #14 tablet 05/07/20 03/30/21 5-325 Tablet] Melatonin 3 mg PO DAILY 05/07/20 03/30/21 HYDROcod/ACETAM 5/325 [[place] 5/325] 1 - 2 tab PO Q6H PRN #15 tablet 05/14/20 03/30/21 Atorvastatin [Lipitor] 1 ea PO DAILY 03/30/21 03/30/21 Calcium Carbonate [Calcium] 1 ea PO DAILY 03/30/21 03/30/21 Cyanocobalamin (Vitamin B-12) 1 ea PO DAILY 03/30/21 03/30/21 [Vitamin B-12] traZODone [Desyrel] 3 ea PO DAILY 03/30/21 03/30/21 HYDROcod/ACETAM 5/325 [[place] 5/325] 1 - 2 tablet PO Q6H PRN #14 tablet 05/20/22 - Allergies Allergies/Adverse Reactions: Allergies Allergy/AdvReac Type Severity Reaction Status Date / Time ciprofloxacin Allergy Unknown Verified 10/16/18 21:08 hydrochlorothiazide Allergy Unknown Verified 10/16/18 21:08 ketoconazole Allergy Unknown Verified 10/16/18 21:08 metformin Allergy Unknown Verified 05/07/20 10:36 metoclopramide Allergy Unknown Verified 10/16/18 21:08 - Social History Does the pt smoke?: No Smoking Status: Never smoker Does the pt drink ETOH?: No Does the pt have substance abuse?: No - Immunizations Immunizations are current?: Yes PD ED PE NORMAL - Vitals Vital signs reviewed: Yes - General General: Alert and oriented X 3, No acute distress, Well developed/nourished - HEENT HEENT: Atraumatic, PERRL, EOMI, Moist mucous membranes - Neck Neck: Supple, no meningeal sign - Cardiac Cardiac: RRR, No murmur, Strong equal pulses - Respiratory Respiratory: No respiratory distress, Clear bilaterally - Abdomen Abdomen: Soft, Non distended, Other (Mild left lower quadrant and flank tenderness; abrasion and contusion extending from left anterior pelvic wall, a sending across iliac wing and crest and slightly around the posterior flank. No edema. No deformity. No right sided abdominal tenderness or other findings) - Derm Derm: Warm and dry, Other (Skin findings on abdominal wall, as above.) - Extremities Extremities: No deformity, No tenderness to palpate, Normal ROM s pain (Passively), No edema - Neuro Neuro: Alert and oriented X 3 - Psych Psych: Normal mood, Normal affect Results - Vitals Vitals: Vital Signs - 24 hr 05/20/22 05/20/22 05/20/22 19:18 21:02 22:36 Temperature 36.7 C Heart Rate 78 63 70 Respiratory 18 18 15 Rate Blood Pressure 111/63 134/110 H 158/77 H O2 Saturation 97 96 99 Oxygen O2 Source Room air - Rads (name of study) CT abdomen and pelvis no contrast Radiology: Final report received, See rad report (No traumatic findings) PD Medical Decision Making - ED course Complexity details: reviewed results, re-evaluated patient, considered differential, d/w patient, d/w family ED course: The patient was worked up with CT noncontrast of the abdomen and pelvis, Which did not show any evidence of significant trauma. He was treated symptomatically with 0.5 mg of Dilaudid IV As well as an oral dose of Vicodin. We have discussed symptomatic management at home, as well as the usual indications for return. The patient and his daughter have both expressed understanding. Departure - Departure Disposition: 01 Home, Self Care Clinical Impression: Fall from ground level Contusion of abdominal wall Qualifiers: Encounter type: initial encounter Qualified Code(s): S30.1XXA - Contusion of abdominal wall, initial encounter Condition: Stable Instructions: ED Contusion Soft Tissue Prescriptions: HYDROcod/ACETAM 5/325 [[place] 5/325] 1 - 2 tablet PO Q6H PRN #14 tablet PRN Reason: Pain Comments: Your CT scan looks good. There is no evidence of a serious injury. You do not have any internal bleeding and there is no evidence of any broken bones. You have been treated for your pain here in the emergency department with both IV and oral medication. [facility] [place] [facility] your [facility]. Please follow-up with your primary care physician as needed. Discharge Date/Time: 05/20/22 22:36
[2022-05-20] MEDS ORDERED: HYDROmorphone 0.5 MG/0.5 ML SYRINGE IVP STA (20:30)
--- NOTE | 2022-05-20 22:05 | CT Report ---
PROCEDURE: ABDOMEN/PELVIS WO INDICATIONS: L flank/pelvis injury after GLF, on plavix TECHNIQUE: Noncontrast 5 mm thick sections acquired from the diaphragms to the symphysis. 5 mm coronal and sagi ttal reformats were then performed. For radiation dose reduction, the following was used: automated exposure control, adjustment of mA and/or kV according to patient size. COMPARISON: CT abdomen pelvis 05/14/2020, 05/07/2020. FINDINGS: Image quality: There is mild motion artifact. Lung bases:There is mild atelectasis and scarring in the lung bases. Heart: Heart is normal in size. ABDOMEN: Liver:Noncontrast evaluation of the liver demonstrates no discrete mass, laceration, or perihepatic fluid collection. Gallbladder:Surgically absent. Biliary ducts:There is mild biliary ductal dilatation redemonstrated, likely secondary to prior chol ecystectomy. Pancreas:There is mild fatty atrophy of the pancreas. No pancreatic duct dilatation or discrete panc reatic mass identified. Spleen: Normal in size. Noncontrast evaluation demonstrates no definite splenic laceration or perisp lenic fluid collections. Adrenal Glands: No adrenal nodules. Kidneys and Ureters: No hydronephrosis or nephrolithiasis. There is mild perinephric stranding bilat erally redemonstrated. Stomach and Bowel: Stomach, small bowel loops, and colon are normal in caliber and wall thickness. T he appendix is normal in appearance. Peritoneum: No abnormal intraperitoneal fluid. No free air. Ventral Wall: No hernia. Abdominal Nodes: No retroperitoneal or mesenteric adenopathy by size criteria. Vessels: Aorta and inferior vena cava are normal in size. PELVIS: Pelvic Organs: Unremarkable. Bladder:There are small bladder diverticula. No definite bladder wall thickening. Pelvic Nodes: No enlarged lymph nodes. Miscellaneous: No inguinal hernias. Bones: There are old healed fractures of the left 9th and 10th ribs posteriorly. Visualized osseous s tructures demonstrate no suspicious lesions. IMPRESSION: 1. No definite acute traumatic abnormality in the abdomen or pelvis. 2. No nephrolithiasis or obstructive uropathy. 3. Small bladder diverticula without bladder wall thickening. Reviewed by: Shailesh Cooper MD on 05/20/2022 10:04 PM PST Approved by: Shailesh Cooper MD on 05/20/2022 10:04 PM PST Station ID: [id number]
[2022-05-20] MEDS ORDERED: HYDROcod/ACETAM 5/325 MG TABLET PO STA (22:22)
[2022-05-20 22:37] VITALS: BP 158/77
== END 2022-05-20 22:36 | disposition home or self-care (01) ==
LOC: EDUNIT# → ED 19:11
DX: S30.1XXA Contusion of abdominal wall, initial encounter (principal); W05.0XXA Fall from non-moving wheelchair, initial encounter; I69.354 Hemiplegia and hemiparesis following cerebral infarction affecting left non-dominant side; I10 Essential (primary) hypertension; Z99.3 Dependence on wheelchair
CPT/HCPCS: 36415; 74176; 93005; 96374; 99284; A9270; J1170

== ENCOUNTER 2022-08-23 08:08 | Outpatient (CLI) | payer OTHER | END 2022-08-23 23:59 | disposition left against medical advice (07) | LOC: EMS 08:08 | DX: R42 Dizziness and giddiness (principal); R10.12 Left upper quadrant pain; W06.XXXA Fall from bed, initial encounter; Y92.003 Bedroom of unspecified non-institutional (private) residence as the place of occurrence of the external cause; Z79.01 Long term (current) use of anticoagulants ==

== ENCOUNTER 2022-08-24 17:43 | Outpatient (CLI) | payer OTHER | END 2022-08-24 23:59 | disposition left against medical advice (07) | LOC: EMS 17:43 | DX: R42 Dizziness and giddiness (principal); R53.1 Weakness; R53.83 Other fatigue; S50.811A Abrasion of right forearm, initial encounter; W18.39XA Other fall on same level, initial encounter; Y92.008 Other place in unspecified non-institutional (private) residence as the place of occurrence of the external cause; E11.65 Type 2 diabetes mellitus with hyperglycemia; Z79.01 Long term (current) use of anticoagulants ==

== ENCOUNTER 2023-07-22 11:14 | Outpatient (CLI) | payer OTHER | END 2023-07-22 23:59 | disposition EMS.NT | LOC: EMS 11:14 | DX: R53.1 Weakness (principal) ==

== ENCOUNTER 2024-12-25 23:28 | Inpatient (IN) ==
[2024-12-25 23:46] LABS: HCT - HEMATOCRIT 32.6 % (42.0-52.0); HGB - HEMOGLOBIN 10.4 g/dL (14.0-18.0); MEAN PLATELET VOLUME 10.6 fL (7.4-11.4); NRBC ABSOLUTE COUNT (AUTO) 0.00 x10^3/uL; NUCLEATED RED BLOOD CELLS AUTO 0.0 /100WBC; PLT - PLATELET COUNT 195 10^3/uL (130-450); RED CELL DISTRIBUTION WIDTH 18.3 % (12.0-15.0)
--- OUTSIDE RECORDS SUMMARY | 2024-12-25 23:48 | EXTERNAL MEDICAL SUMMARY RPT | Continuity of Care Document ---
Author Organization [facility] Address [address] [place] [id number] Phone Care Team Providers Care L Tacker Name Role Phone Unavailable Unavailable [email or web address] Unavailable Unavailable Medications date description facility 2024-11-18 00:00 Ondansetron [facility] 2024-11-18 00:00 Lactulose [facility] 2024-11-18 00:00 [facility] description [facility] 2024-09-28 10:18 Retention of urine, unspecified [facility] 2024-09-28 10[facility]18 [facility]:00 Acute on chronic retention of u rine [facility] 2024-11-14 00:00 Acute alteration in mental stat [facility] 2024-11-18 00:00 Constipation [facility] 2024-11-18 00:00 Urinary tract infection [facility] 2024-11-23 15:05 Dorsalgia, unspecified [facility] 2024-11-23 15:05 Altered mental status, unspecif ied [facility] 2024-11-26 12:56 Low back pain, unspecified [facility] 2024-11-30 13:41 Dorsalgia, unspecified [facility] 2024-11-30 13:41 Altered mental status, unspecif ied [facility] Procedures date description facility 2024-11-14 00:00 Blood culture [facility] 2024-11-14 00:00 Computed tomography of head or brain without contrast [facility] 2024-11-14 00:00 X-ray of chest, single view [facility] 2024-11-18 00:00 CT abdomen pelvis [facility] Results/Labs test date facility value unit notes Result panel 1 Specimen collection (procedure) (no date) [facility] (missing) (missing) (missing) Result panel 2 Specimen collection (procedure) (no date) [facility] (missing) (missing) (missing) Result panel 3 Specimen collection (procedure) (no date) [facility] (missing) (missing) (missing) Result panel 4 Specimen collection (procedure) (no date) [facility] (missing) (missing) (missing) Result panel 5 Specimen collection (procedure) (no date) [facility] (missing) (missing) (missing) Result panel 6 Specimen collection (procedure) (no date) [facility] (missing) (missing) (missing) Result panel 7 Specimen collection (procedure) (no date) [facility] (missing) (missing) (missing) Result panel 8 Specimen collection (procedure) (no date) [facility] (missing) (missing) (missing) Result panel 9 Specimen collection (procedure) (no date) [facility] (missing) (missing) (missing) Result panel 10 Specimen collection (procedure) (no date) [facility] (missing) (missing) (missing) Result panel 11 Specimen collection (procedure) (no date) [facility] (missing) (missing) (missing) Result panel 12 Specimen collection (procedure) (no date) [facility] (missing) (missing) (missing) Result panel 13 Specimen collection (procedure) (no date) [facility] (missing) (missing) (missing) Result panel 14 Specimen collection (procedure) (no date) [facility] (missing) (missing) (missing) Result panel 15 Specimen collection (procedure) (no date) [facility] (missing) (missing) (missing) Result panel 16 Specimen collection (procedure) (no date) [facility] (missing) (missing) (missing) Result panel 17 Specimen collection (procedure) (no date) [facility] (missing) (missing) (missing) Result panel 18 Specimen collection (procedure) (no date) [facility] (missing) (missing) (missing) Result panel 19 Specimen collection (procedure) (no date) [facility] (missing) (missing) (missing) Result panel 20 Specimen collection (procedure) (no date) [facility] (missing) (missing) (missing) Result panel 21 Specimen collection (procedure) (no date) [facility] (missing) (missing) (missing) Result panel 22 Specimen collection (procedure) (no date) [facility] (missing) (missing) (missing) Result panel 23 Specimen collection (procedure) (no date) [facility] (missing) (missing) (missing) Result panel 24 Specimen collection (procedure) (no date) [facility] (missing) (missing) (missing) Result panel 25 Specimen collection (procedure) (no date) [facility] (missing) (missing) (missing) Result panel 26 Specimen collection (procedure) (no date) [facility] (missing) (missing) (missing) Result panel 27 Specimen collection (procedure) (no date) [facility] (missing) (missing) (missing) Result panel 28 Specimen collection (procedure) (no date) [facility] (missing) (missing) (missing) Result panel 29 Specimen collection (procedure) (no date) [facility] (missing) (missing) (missing) Result panel 30 Specimen collection (procedure) (no date) [facility] (missing) (missing) (missing) Result panel 31 Specimen collection (procedure) (no date) [facility] (missing) (missing) (missing) Result panel 32 Specimen collection (procedure) (no date) [facility] (missing) (missing) (missing) Result panel 33 Specimen collection (procedure) (no date) [facility] (missing) (missing) (missing) Result panel 34 Specimen collection (procedure) (no date) [facility] (missing) (missing) (missing) Result panel 35 Specimen collection (procedure) (no date) [facility] (missing) (missing) (missing) Result panel 36 Specimen collection (procedure) (no date) [facility] (missing) (missing) (missing) Result panel 37 Specimen collection (procedure) (no date) [facility] (missing) (missing) (missing) Result panel 38 Specimen collection (procedure) (no date) [facility] (missing) (missing) (missing) Result panel 39 Specimen collection (procedure) (no date) [facility] (missing) (missing) (missing) Result panel 40 Specimen collection (procedure) (no date) [facility] (missing) (missing) (missing) Result panel 41 Specimen collection (procedure) (no date) [facility] (missing) (missing) (missing) Result panel 42 Specimen collection (procedure) (no date) [facility] (missing) (missing) (missing) Result panel 43 Specimen collection (procedure) (no date) [facility] (missing) (missing) (missing) Result panel 44 Specimen collection (procedure) (no date) [facility] (missing) (missing) (missing) Result panel 45 Specimen collection (procedure) (no date) [facility] (missing) (missing) (missing) Result panel 46 Specimen collection (procedure) (no date) [facility] (missing) (missing) (missing) Result panel 47 Specimen collection (procedure) (no date) [facility] (missing) (missing) (missing) Result panel 48 Specimen collection (procedure) (no date) [facility] (missing) (missing) (missing) Result panel 49 Specimen collection (procedure) (no date) [facility] (missing) (missing) (missing) Result panel 50 Specimen collection (procedure) (no date) [facility] (missing) (missing) (missing) Result panel 51 Specimen collection (procedure) (no date) [facility] (missing) (missing) (missing) Result panel 52 Specimen collection (procedure) (no date) [facility] (missing) (missing) (missing) Result panel 53 Specimen collection (procedure) (no date) [facility] (missing) (missing) (missing) Result panel 54 Specimen collection (procedure) (no date) [facility] (missing) (missing) (missing) Result panel 55 Specimen collection (procedure) (no date) [facility] (missing) (missing) (missing) Result panel 56 Specimen collection (procedure) (no date) [facility] (missing) (missing) (missing) Result panel 57 Specimen collection (procedure) (no date) [facility] (missing) (missing) (missing) Result panel 58 Specimen collection (procedure) (no date) [facility] (missing) (missing) (missing) Result panel 59 Specimen collection (procedure) (no date) [facility] (missing) (missing) (missing) Result panel 60 Specimen collection (procedure) (no date) [facility] (missing) (missing) (missing) Result panel 61 Specimen collection (procedure) (no date) [facility] (missing) (missing) (missing) Result panel 62 Specimen collection (procedure) (no date) [facility] (missing) (missing) (missing) Result panel 63 Specimen collection (procedure) (no date) [facility] (missing) (missing) (missing) Result panel 64 Specimen collection (procedure) (no date) [facility] (missing) (missing) (missing) Result panel 65 Specimen collection (procedure) (no date) [facility] (missing) (missing) (missing) Result panel 66 Specimen collection (procedure) (no date) [facility] (missing) (missing) (missing) Result panel 67 Specimen collection (procedure) (no date) [facility] (missing) (missing) (missing) Result panel 68 Specimen collection (procedure) (no date) [facility] (missing) (missing) (missing) Result panel 69 Specimen collection (procedure) (no date) [facility] (missing) (missing) (missing) Result panel 70 Specimen collection (procedure) (no date) [facility] (missing) (missing) (missing) Result panel 71 Specimen collection (procedure) (no date) [facility] (missing) (missing) (missing) Result panel 72 Specimen collection (procedure) (no date) [facility] (missing) (missing) (missing) Result panel 73 Specimen collection (procedure) (no date) [facility] (missing) (missing) (missing) Result panel 74 Specimen collection (procedure) (no date) [facility] (missing) (missing) (missing) Result panel 75 Specimen collection (procedure) (no date) [facility] (missing) (missing) (missing) Result panel 76 Specimen collection (procedure) (no date) [facility] (missing) (missing) (missing) Result panel 77 Specimen collection (procedure) (no date) [facility] (missing) (missing) (missing) Result panel 78 Specimen collection (procedure) (no date) [facility] (missing) (missing) (missing) Result panel 79 Specimen collection (procedure) (no date) [facility] (missing) (missing) (missing) Result panel 80 Specimen collection (procedure) (no date) [facility] (missing) (missing) (missing) Result panel 81 Specimen collection (procedure) (no date) [facility] (missing) (missing) (missing) Result panel 82 Specimen collection (procedure) (no date) [facility] (missing) (missing) (missing) Result panel 83 Specimen collection (procedure) (no date) [facility] (missing) (missing) (missing) Result panel 84 Specimen collection (procedure) (no date) [facility] (missing) (missing) (missing) Result panel 85 Specimen collection (procedure) (no date) [facility] (missing) (missing) (missing) Result panel 86 Specimen collection (procedure) (no date) [facility] (missing) (missing) (missing) Result panel 87 Specimen collection (procedure) (no date) [facility] (missing) (missing) (missing) Result panel 88 Specimen collection (procedure) (no date) [facility] (missing) (missing) (missing) Result panel 89 Specimen collection (procedure) (no date) [facility] (missing) (missing) (missing) Result panel 90 Specimen collection (procedure) (no date) [facility] (missing) (missing) (missing) Result panel 91 Specimen collection (procedure) (no date) [facility] (missing) (missing) (missing) Result panel 92 Specimen collection (procedure) (no date) [facility] (missing) (missing) (missing) Result panel 93 Specimen collection (procedure) (no date) [facility] (missing) (missing) (missing) Result panel 94 Specimen collection (procedure) (no date) [facility] (missing) (missing) (missing) Result panel 95 Specimen collection (procedure) (no date) [facility] (missing) (missing) (missing) Result panel 96 Specimen collection (procedure) (no date) [facility] (missing) (missing) (missing) Result panel 97 Specimen collection (procedure) (no date) [facility] (missing) (missing) (missing) Result panel 98 Specimen collection (procedure) (no date) [facility] (missing) (missing) (missing) Result panel 99 Specimen collection (procedure) (no date) [facility] (missing) (missing) (missing) Result panel 100 Specimen collection (procedure) (no date) [facility] (missing) (missing) (missing) Result panel 101 Specimen collection (procedure) (no date) [facility] (missing) (missing) (missing) Result panel 102 Specimen collection (procedure) (no date) [facility] (missing) (missing) (missing) Result panel 103 Specimen collection (procedure) (no date) [facility] (missing) (missing) (missing) Result panel 104 Specimen collection (procedure) (no date) [facility] (missing) (missing) (missing) Result panel 105 Specimen collection (procedure) (no date) [facility] (missing) (missing) (missing) Result panel 106 Specimen collection (procedure) (no date) [facility] (missing) (missing) (missing) Result panel 107 Specimen collection (procedure) (no date) [facility] (missing) (missing) (missing) Result panel 108 Specimen collection (procedure) (no date) [facility] (missing) (missing) (missing) Result panel 109 Specimen collection (procedure) (no date) [facility] (missing) (missing) (missing) Result panel 110 Specimen collection (procedure) (no date) [facility] (missing) (missing) (missing) Result panel 111 Specimen collection (procedure) (no date) [facility] (missing) (missing) (missing) Result panel 112 Specimen collection (procedure) (no date) [facility] (missing) (missing) (missing) Result panel 113 Specimen collection (procedure) (no date) [facility] (missing) (missing) (missing) Result panel 114 Specimen collection (procedure) (no date) [facility] (missing) (missing) (missing) Result panel 115 Specimen collection (procedure) (no date) [facility] (missing) (missing) (missing) Result panel 116 Specimen collection (procedure) (no date) [facility] (missing) (missing) (missing) Result panel 117 Specimen collection (procedure) (no date) [facility] (missing) (missing) (missing) Result panel 118 Specimen collection (procedure) (no date) [facility] (missing) (missing) (missing) Result panel 119 Specimen collection (procedure) (no date) [facility] (missing) (missing) (missing) Result panel 120 Specimen collection (procedure) (no date) [facility] (missing) (missing) (missing) Result panel 121 Specimen collection (procedure) (no date) [facility] (missing) (missing) (missing) Result panel 122 Specimen collection (procedure) (no date) [facility] (missing) (missing) (missing) Result panel 123 Specimen collection (procedure) (no date) [facility] (missing) (missing) (missing) Result panel 124 Specimen collection (procedure) (no date) [facility] (missing) (missing) (missing) Result panel 125 Specimen collection (procedure) (no date) [facility] (missing) (missing) (missing) Result panel 126 Specimen collection (procedure) (no date) [facility] (missing) (missing) (missing) Result panel 127 Specimen collection (procedure) (no date) [facility] (missing) (missing) (missing) Result panel 128 Specimen collection (procedure) (no date) [facility] (missing) (missing) (missing) Result panel 129 Specimen collection (procedure) (no date) [facility] (missing) (missing) (missing) Result panel 130 Specimen collection (procedure) (no date) [facility] (missing) (missing) (missing) Result panel 131 Specimen collection (procedure) (no date) [facility] (missing) (missing) (missing) Result panel 132 Specimen collection (procedure) (no date) [facility] (missing) (missing) (missing) Result panel 133 Specimen collection (procedure) (no date) [facility] (missing) (missing) (missing) Result panel 134 Specimen collection (procedure) (no date) [facility] (missing) (missing) (missing) Result panel 135 Specimen collection (procedure) (no date) [facility] (missing) (missing) (missing) Result panel 136 Specimen collection (procedure) (no date) [facility] (missing) (missing) (missing) Result panel 137 Specimen collection (procedure) (no date) [facility] (missing) (missing) (missing) Result panel 138 Specimen collection (procedure) (no date) [facility] (missing) (missing) (missing) Result panel 139 Specimen collection (procedure) (no date) [facility] (missing) (missing) (missing) Result panel 140 Specimen collection (procedure) (no date) [facility] (missing) (missing) (missing) Result panel 141 Specimen collection (procedure) (no date) [facility] (missing) (missing) (missing) Result panel 142 Specimen collection (procedure) (no date) [facility] (missing) (missing) (missing) Result panel 143 Specimen collection (procedure) (no date) [facility] (missing) (missing) (missing) Result panel 144 Specimen collection (procedure) (no date) [facility] (missing) (missing) (missing) Result panel 145 Specimen collection (procedure) (no date) [facility] (missing) (missing) (missing) Result panel 146 Specimen collection (procedure) (no date) [facility] (missing) (missing) (missing) Result panel 147 Specimen collection (procedure) (no date) [facility] (missing) (missing) (missing) Result panel 148 Specimen collection (procedure) (no date) [facility] (missing) (missing) (missing) Result panel 149 Specimen collection (procedure) (no date) [facility] (missing) (missing) (missing) Result panel 150 Specimen collection (procedure) (no date) [facility] (missing) (missing) (missing) Result panel 151 Specimen collection (procedure) (no date) [facility] (missing) (missing) (missing) Result panel 152 Specimen collection (procedure) (no date) [facility] (missing) (missing) (missing) Result panel 153 Specimen collection (procedure) (no date) [facility] (missing) (missing) (missing) Result panel 154 Specimen collection (procedure) (no date) [facility] (missing) (missing) (missing) Result panel 155 Specimen collection (procedure) (no date) [facility] (missing) (missing) (missing) Result panel 156 Specimen collection (procedure) (no date) [facility] (missing) (missing) (missing) Result panel 157 Specimen collection (procedure) (no date) [facility] (missing) (missing) (missing) Result panel 158 Specimen collection (procedure) (no date) [facility] (missing) (missing) (missing) Result panel 159 Specimen collection (procedure) (no date) [facility] (missing) (missing) (missing) Result panel 160 Specimen collection (procedure) (no date) [facility] (missing) (missing) (missing) Result panel 161 Specimen collection (procedure) (no date) [facility] (missing) (missing) (missing) Result panel 162 Specimen collection (procedure) (no date) [facility] (missing) (missing) (missing) Result panel 163 Specimen collection (procedure) (no date) [facility] (missing) (missing) (missing) Result panel 164 Specimen collection (procedure) (no date) [facility] (missing) (missing) (missing) Result panel 165 Specimen collection (procedure) (no date) [facility] (missing) (missing) (missing) Result panel 166 Specimen collection (procedure) (no date) [facility] (missing) (missing) (missing) Result panel 167 Specimen collection (procedure) (no date) [facility] (missing) (missing) (missing) Result panel 168 Specimen collection (procedure) (no date) [facility] (missing) (missing) (missing) Result panel 169 Specimen collection (procedure) (no date) [facility] (missing) (missing) (missing) Result panel 170 Specimen collection (procedure) (no date) [facility] (missing) (missing) (missing) Result panel 171 Specimen collection (procedure) (no date) [facility] (missing) (missing) (missing) Result panel 172 Specimen collection (procedure) (no date) [facility] (missing) (missing) (missing) Result panel 173 Specimen collection (procedure) (no date) [facility] (missing) (missing) (missing) Result panel 174 Specimen collection (procedure) (no date) [facility] (missing) (missing) (missing) Result panel 175 Specimen collection (procedure) (no date) [facility] (missing) (missing) (missing) Result panel 176 Specimen collection (procedure) (no date) [facility] (missing) (missing) (missing) Result panel 177 Specimen collection (procedure) (no date) [facility] (missing) (missing) (missing) Result panel 178 Specimen collection (procedure) (no date) [facility] (missing) (missing) (missing) Result panel 179 Specimen collection (procedure) (no date) [facility] (missing) (missing) (missing) Result panel 180 Specimen collection (procedure) (no date) [facility] (missing) (missing) (missing) Result panel 181 Specimen collection (procedure) (no date) [facility] (missing) (missing) (missing) Result panel 182 Specimen collection (procedure) (no date) [facility] (missing) (missing) (missing) Result panel 183 Specimen collection (procedure) (no date) [facility] (missing) (missing) (missing) Result panel 184 Specimen collection (procedure) (no date) [facility] (missing) (missing) (missing) Result panel 185 Specimen collection (procedure) (no date) [facility] (missing) (missing) (missing) Result panel 186 Specimen collection (procedure) (no date) [facility] (missing) (missing) (missing) Result panel 187 Specimen collection (procedure) (no date) [facility] (missing) (missing) (missing) Result panel 188 Specimen collection (procedure) (no date) [facility] (missing) (missing) (missing) Result panel 189 Specimen collection (procedure) (no date) [facility] (missing) (missing) (missing) Result panel 190 Specimen collection (procedure) (no date) [facility] (missing) (missing) (missing) Result panel 191 Specimen collection (procedure) (no date) [facility] (missing) (missing) (missing) Result panel 192 Creatine kinase [Enzymatic activity/volume] in Serum or Plasma 2024-11-14 17:37:07 [facility] 81 U/L (miss ing) Result panel 193 Troponin I.cardiac [Mass/volume] in Serum or Plasma 2024-11-14 17:37:07 [facility] < 0.012 ng/mL (missing) (missing) Result panel 194 Sodium [Moles/volume] in Serum or Plasma 2024-11-14 17:37:07 [facility] 134 mmol/L ( issing) Result panel 195 Potassium [Moles/volume] in Serum or Plasma 2024-11-14 17:37:07 [facility] 3.6 mmol/L ([facility]) Result panel 196 Chloride [Moles/volume] in Serum or Plasma 2024-11-14 17:37:07 [facility] 102 mmol/L ([facility]) Result panel 197 Carbon dioxide, total [Moles/volume] in Serum or Plasma 2024-11-14 17:37:07 [facility] 26 mmol/L ([facility]) Result panel 198 Urea nitrogen [Mass/volume] in Serum or Plasma 2024-11-14 17:37:07 [facility] 11 mg/dL ([facility]) Result panel 199 Creatinine [Mass/volume] in Serum or Plasma 2024-11-14 17:37:07 [facility] 0.82 mg/dL ([facility]) Result panel 200 Glomerular filtration rate (GFR) estimation 2024-11-14 17:37:07 [facility] > 60 mL/min (missing) (missing) Result panel 201 BUN/creatinine ratio 2024-11-14 17:37:07 [facility] 13. 4 (missing) (missing) Result panel 202 Glucose [Mass/volume] in Serum or Plasma 2024-11-14 17:37:07 [facility] 294 mg/dL ([facility]) Result panel 203 Lactate [Mass/volume] in Serum or Plasma 2024-11-14 17:37:07 [facility] 1.3 mmol/L ([facility]) Result panel 204 Calcium [Mass/volume] in Serum or Plasma 2024-11-14 17:37:07 [facility] 8.5 mg/dL ([facility]) Result panel 205 Bilirubin.total [Mass/volume ] in Serum or Plasma 2024-11-14 17:37:07 [facility] 0.7 mg/dL (missing) Result panel 206 Aspartate aminotransferase [Enzymatic activity/volume] in Serum or Plasma 2024-11-14 17:37:07 [facility] 20 IU/L ([facility]) Result panel 207 Alanine aminotransferase [Enzymatic activity/volume] in Serum or Plasma 2024-11-14 17:37:07 [facility] 12 IU/L ([facility]) Result panel 208 Alkaline phosphatase [Enzyma tic activity/volume] in Serum or Plasma 2024-11-14 17:37:07 [facility] 82 U/L ([facility]) Result panel 209 Ammonia [Moles/volume] in Plasma 2024-11-14 17:37:07 [facility] < 9 umol/L (missing) (missing) Result panel 210 Protein total ser/plas 2024-11-14 17:37:07 [facility] 6 .3 g/dL (missing) Result panel 211 Albumin [Mass/volume] in Ser um or Plasma 2024-11-14 17:37:07 [facility] 3.5 g/dL (miss ing) Result panel 212 Globulin [Mass/volume] in Serum by calculation 2024-11-14 17:37:07 [facility] 2.8 g/dL (missing) Result panel 213 Albumin/Globulin [Mass Ratio] in Serum or Plasma 2024-11-14 17:37:07 [facility] 1.3 (miss ing) (missing) Result panel 214 Procalcitonin [Mass/volume] in Serum or Plasma 2024-11-14 17:37:07 [facility] 0.057 ng/mL (missing) Result panel 215 Ethanol [Mass/volume] in Serum or Plasma 2024-11-14 17:37:07 [facility] < 10 mg/dL (missing) (missing) Result panel 216 White blood cell count 2024-11-14 17:37:07 [facility] 4 .5 X10^3/uL (missing) Result panel 217 Red blood cell count 2024-11-14 17:37:07 [facility] 3.8 2 X10^6/uL (missing) Result panel 218 Hemoglobin 2024-11-14 17:37:07 [facility] 9.1 g/d L (missing) Result panel 219 Hematocrit 2024-11-14 17:37:07 [facility] 27.8 % (missing) Result panel 220 MCV (mean corpuscular volume ) determination 2024-11-14 17:37:07 [facility] 72.9 fL (mis sing) Result panel 221 Mean corpuscular hemoglobin (MCH) determination 2024-11-14 17:37:07 [facility] 23.8 PG (missing) Result panel 222 Mean corpuscular hemoglobin concentration (MCHC) determination 2024-11-14 17:37:07 [facility] 32.6 % (mis sing) Result panel 223 Red cell distribution width determination 2024-11-14 17:37:07 [facility] 18.1 % (mis sing) Result panel 224 Platelet count 2024-11-14 17:37:07 [facility] 161 X10^3/uL (missing) Result panel 225 Automated neutrophil % 2024-11-14 17:37:07 [facility] 6 3.9 % (missing) Result panel 226 Automated lymphocyte % 2024-11-14 17:37:07 [facility] 2 7.0 % (missing) Result panel 227 Automated monocyte % 2024-11-14 17:37:07 [facility] 7.2 % (missing) Result panel 228 Automated eosinophil % 2024-11-14 17:37:07 [facility] 1 .0 % (missing) Result panel 229 Automated basophil % 2024-11-14 17:37:07 [facility] 0.9 % (missing) Result panel 230 Absolute neutrophil count 2024-11-14 [facility] ([facility] Result panel 231 Absolute lymphocyte count 2024-11-14 17:37:07 [facility] l 1200 /uL (missing) Result panel 232 Automated blood monocyte count 2024-11-14 17:37:07 [facility] 300 /uL (missing) Result panel 233 Automated eosinophil count 2024-11-14 [facility] Result panel 234 Automated basophil count 2024-11-14 17:37:07 [facility] 0 /uL (missing) Result panel 235 Creatine kinase [Enzymatic activity/volume] in Serum or Plasma 2024-11-14 17:37:07 [facility] 81 U/L (miss ing) Result panel 236 Troponin I.cardiac [Mass/volume] in Serum or Plasma 2024-11-14 17:37:07 [facility] < 0.012 ng/mL (missing) (missing) Result panel 237 Sodium [Moles/volume] in Serum or Plasma 2024-11-14 17:37:07 [facility] 134 mmol/L ( issing) Result panel 238 Potassium [Moles/volume] in Serum or Plasma 2024-11-14 17:37:07 [facility] 3.6 mmol/L ( issing) Result panel 239 Chloride [Moles/volume] in Serum or Plasma 2024-11-14 17:37:07 [facility] 102 mmol/L ( issing) Result panel 240 Carbon dioxide, total [Moles/volume] in Serum or Plasma 2024-11-14 17:37:07 [facility] 26 mmol/L (miss ing) Result panel 241 Urea nitrogen [Mass/volume] in Serum or Plasma 2024-11-14 17:37:07 [facility] 11 mg/dL ([facility]) Result panel 242 Creatinine [Mass/volume] in Serum or Plasma 2024-11-14 17:37:07 [facility] 0.82 mg/dL ([facility]) Result panel 243 Glomerular filtration rate (GFR) estimation 2024-11-14 17:37:07 [facility] > 60 mL/min (missing) (missing) Result panel 244 BUN/creatinine ratio 2024-11-14 17:37:07 [facility] 13. 4 (missing) (missing) Result panel 245 Glucose [Mass/volume] in Serum or Plasma 2024-11-14 17:37:07 [facility] 294 mg/dL ([facility]) Result panel 246 Lactate [Mass/volume] in Serum or Plasma 2024-11-14 17:37:07 [facility] 1.3 mmol/L ([facility]) Result panel 247 Calcium [Mass/volume] in Serum or Plasma 2024-11-14 17:37:07 [facility] 8.5 mg/dL ([facility]) Result panel 248 Bilirubin.total [Mass/volume ] in Serum or Plasma 2024-11-14 17:37:07 [facility] 0.7 mg/dL (missing) Result panel 249 Aspartate aminotransferase [Enzymatic activity/volume] in Serum or Plasma 2024-11-14 17:37:07 [facility] 20 IU/L ([facility]) Result panel 250 Alanine aminotransferase [Enzymatic activity/volume] in Serum or Plasma 2024-11-14 17:37:07 [facility] 12 IU/L ([facility]) Result panel 251 Alkaline phosphatase [Enzyma tic activity/volume] in Serum or Plasma 2024-11-14 17:37:07 [facility] 82 U/L (miss ing) Result panel 252 Ammonia [Moles/volume] in Plasma 2024-11-14 17:37:07 [facility] < 9 umol/L (missing) (missing) Result panel 253 Protein total ser/plas 2024-11-14 17:37:07 [facility] 6 .3 g/dL (missing) Result panel 254 Albumin [Mass/volume] in Ser um or Plasma 2024-11-14 17:37:07 [facility] 3.5 g/dL (miss ing) Result panel 255 Globulin [Mass/volume] in Serum by calculation 2024-11-14 17:37:07 [facility] 2.8 g/dL (missing) Result panel 256 Albumin/Globulin [Mass Ratio] in Serum or Plasma 2024-11-14 17:37:07 [facility] 1.3 (miss ing) (missing) Result panel 257 Procalcitonin [Mass/volume] in Serum or Plasma 2024-11-14 17:37:07 [facility] 0.057 ng/mL (missing) Result panel 258 Ethanol [Mass/volume] in Serum or Plasma 2024-11-14 17:37:07 [facility] < 10 mg/dL (missing) (missing) Result panel 259 White blood cell count 2024-11-14 17:37:07 [facility] 4 .5 X10^3/uL (missing) Result panel 260 Red blood cell count 2024-11-14 17:37:07 [facility] 3.8 2 X10^6/uL (missing) Result panel 261 Hemoglobin 2024-11-14 17:37:07 [facility] 9.1 g/d L (missing) Result panel 262 Hematocrit 2024-11-14 17:37:07 [facility] 27.8 % (missing) Result panel 263 MCV (mean corpuscular volume ) determination 2024-11-14 17:37:07 [facility] 72.9 fL (mis sing) Result panel 264 Mean corpuscular hemoglobin (MCH) determination 2024-11-14 17:37:07 [facility] 23.8 PG (missing) Result panel 265 Mean corpuscular hemoglobin concentration (MCHC) determination 2024-11-14 17:37:07 [facility] 32.6 % (mis sing) Result panel 266 Red cell distribution width determination 2024-11-14 17:37:07 [facility] 18.1 % (mis sing) Result panel 267 Platelet count 2024-11-14 17:37:07 [facility] 161 X10^3/uL (missing) Result panel 268 Automated neutrophil % 2024-11-14 17:37:07 [facility] 6 3.9 % (missing) Result panel 269 Automated lymphocyte % 2024-11-14 17:37:07 [facility] 2 7.0 % (missing) Result panel 270 Automated monocyte % 2024-11-14 17:37:07 [facility] 7.2 % (missing) Result panel 271 Automated eosinophil % 2024-11-14 17:37:07 [facility] 1 .0 % (missing) Result panel 272 Automated basophil % 2024-11-14 17:37:07 [facility] 0.9 % (missing) Result panel 273 Absolute neutrophil count 2024-11-14 [facility] /[facility] ([facility] Result panel 274 Absolute lymphocyte count 2024-11-14 17:37:07 [facility] l 1200 /uL (missing) Result panel 275 Automated blood monocyte count 2024-11-14 17:37:07 [facility] 300 /uL (missing) Result panel 276 Automated eosinophil count 2024-11-14 [facility] Result panel 277 Automated basophil count 2024-11-14 17:37:07 [facility] 0 /uL (missing) Result panel 278 Basophils Absolute Auto 2024-11-14 17:52 [facility] 0 /ul (missing) Eosinophils Absolute Auto 2024-11-14 17:52 [facility] 0 /ul (missing) Basophils Percent Auto 2024-11-14 17:52 [facility] 0.9 % (missing) Eosinophils Percent Auto 2024-11-14 17:52 [facility] 1. 0 % (missing) Lymphocytes Absolute Auto 2024-11-14 17:52 [facility] 1 200 /ul (missing) Platelet Count 2024-11-14 17:52 [facility] 161 x1 0 3/ul (missing) Red Cell Distribution Width 2024-11-14 17:52 [facility] 18.1 % (missing) Mean Corpuscular Hemoglobin 2024-11-14 17:52 [facility] 23.8 pg (missing) Lymphocytes Percent Auto 2024-11-14 17:52 [facility] 27 .0 % (missing) Hematocrit 2024-11-14 17:52 [facility] 27.8 % (missing) Neutrophils Absolute Auto 2024-11-14 17:52 [facility] 2 900 /ul (missing) Red Blood Cell Count 2024-11-14 17:52 [facility] 3.82 x10 6/ul (missing) Monocytes Absolute Auto 2024-11-14 17:52 [facility] 300 /ul (missing) Mean Corpuscular HGB Conc 2024-11-14 17:52 [facility] 3 2.6 % (missing) White Blood Cell Count 2024-11-14 17:52 [facility] 4.5 x10 3/ul (missing) Neutrophils Percent Auto 2024-11-14 17:52 [facility] 63 .9 % (missing) Monocytes Percent Auto 2024-11-14 17:52 [facility] 7.2 % (missing) Mean Corpuscular Volume 2024-11-14 17:52 [facility] 72. 9 fl (missing) Hemoglobin 2024-11-14 17:52 [facility] 9.1 g/dl (missing) Result panel 279 Estimated Glomerular Filt Rate 2024-11-14 18:01 [facility] > 60 ml/min Reported eGFR is based the CKD-EPI 2020 equation that does not use a race coefficient. An eGFR below 60 mL/min/1.73m2 suggests that some kidney damage has occurred, and indicative of chronic kidney disease if persisting greater than 3 months. An eGFR less than 15 is indicative of kidney failure. Bilirubin Total 2024-11-14 18:01 [facility] 0.7 mg/dl (missing) Creatinine 2024-11-14 18:[address] [place] [address] 0.82 mg/dl (missing) Albumin Globulin Ratio 2024-11-14 18:[address] [place] [address] 1.3 (missing) (missing) Chloride 2024-11-14 18:01 [facility] 102 mmol/l (missing) Blood Urea Nitrogen 2024-11-14 18:01 [facility] 11 mg/dl (missing) Alanine Aminotransferase 2024-11-14 18:01 [facility] 12 iu/l (missing) BUN Creatinine Ratio 2024-11-14 18:[address] [place] [address] 13.4 (missing) (missing) Sodium 2024-11-14 18:01 [facility] 134 mmol/l (missing) Globulin 2024-11-14 18:01 [facility] 2.8 g/dl (missing) Aspartate Aminotransferase 2024-11-14 18:01 [facility] 20 iu/l (missing) Carbon Dioxide 2024-11-14 18:01 [facility] 26 mmol/l (missing) Glucose 2024-11-14 18:01 [facility] 294 mg/dl (missing) Albumin 2024-11-14 18:01 [facility] 3.5 g/dl (missing) Potassium 2024-11-14 18:01 [facility] 3.6 mmol/l (missing) Total Protein 2024-11-14 18:[address] [place] [address] 6.3 g/dl (missing) Calcium 2024-11-14 18:01 [facility] 8.5 mg/dl (missing) Alkaline Phosphatase 2024-11-14 18:01 [facility] 82 u/l (missing) Result panel 280 Ethanol (ETOH) 2024-11-14 18:04 [facility] < 10 mg /dl ETHANOL MG/DL FLUSHING, SLOWING OF REFLEXES, IMPAIRED VISION 50-100 CENTRAL NERVOUS SYSTEM DEPRESSION >100 FATALITIES REPORTED >400 Ammonia (NH3) 2024-11-14 18:04 [facility] < 9 umo l/l Comment Order if Patient has Liver Failure Lactate (Lactic Acid) 2024-11-14 18:04 [facility] 1.3 mmol/l Yes/No q uery for Sepsis Lactate Rule Y Creatine Kinase 2024-11-14 18:04 [facility] 81 u /l (missing) Result panel 281 Troponin I 2024-11-14 18:15 [facility] < 0.012 ng/ml Social History date description facility (no date) Unknown if ever smoked [facility] 2024-11-18 00:00 Never smoked tobacco (finding) [facility] Vital Signs date measurement value units 2024-11-14 00:00 BMI 27.3 kg/m2 2024-11-14 00:00 BP_diastolic 77 mmHg 2024-11-14 00:00 BP_systolic 159 mmHg 2024-11-14 00:00 heart_rate 80 /min 2024-11-14 00:00 height_metric 172.72 cm 2024-11-14 00:00 height_standard 68 in 2024-11-14 00:00 o2_saturation 98 % 2024-11-14 00:00 respiration_rate 17 /min 2024-11-14 00:00 temperature_metric 37.17 C 2024-11-14 00:00 temperature_standard 98.9 F 2024-11-14 00:00 weight_metric 81.64 kg 2024-11-14 00:00 weight_standard 179.99 lb 2024-11-17 00:00 BMI 29.9 kg/m2 2024-11-17 00:00 height_metric 165.1 cm 2024-11-17 00:00 height_standard 65 in 2024-11-17 00:00 respiration_rate 18 /min 2024-11-17 00:00 temperature_metric 36.72 C 2024-11-17 00:00 temperature_standard 98.1 F 2024-11-17 00:00 weight_metric 81.64 kg 2024-11-17 00:00 weight_standard 179.99 lb 2024-11-18 00:00 BP_diastolic 82 mmHg 2024-11-18 00:00 BP_systolic 179 mmHg 2024-11-18 00:00 heart_rate 79 /min 2024-11-18 00:00 o2_saturation 96 %
[2024-12-26 00:06] LABS: TROPONIN I HIGH SENSITIVITY 4.4 ng/L (2.3-19.7)
[2024-12-26 00:07] LABS: ALT ALANINE AMINOTRANSFERASE 7 IU/L (10-60); AST ASPARTATE AMINOTRANSFERASE 12 IU/L (10-42); BUN - BLOOD UREA NITROGEN 17 mg/dL (6-20); CARBON DIOXIDE - CO2 25 mmol/L (21-32); CREATININE 1.3 mg/dL (0.6-1.3); ETOH - ETHANOL < 10.0 mg/dL; GFR - MDRD 54 (>89)
--- NOTE | 2024-12-26 00:07 | ED Physician Documentation ---
History of Present Illness Stated complaint Stated Complaint: FELL, AMS, SCUFF ON BACK OF HEAD Chief complaint Chief Complaint: Neuro Additonal information Additional information: Patient is a 74-year-old male who presents to the ER after he sustained a ground-level fall, presents as part of a modified trauma activation. Per EMS, the patient was noted by a neighbor standing outside the neighbor's home. They state that the patient was acting bizarrely, and seemed confused. They note that they watched the patient walk down the street, and they watched him fall. Unclear if patient had loss of consciousness. EMS states that he has been confused from an orientation perspective, but otherwise calm, directable, and answering questions. GCS 14 en route with EMS. EMS states that there is an abrasion to his posterior scalp, and states that according to family he has been treated for a UTI over the last 2 days. Family told EMS that he has been seeming more bizarre and confused over the last couple days. Per chart review he is apparently on Plavix, but other medical history is not known at this time. Patient is currently complaining of pain in his posterior pelvis, but denies pain elsewhere. Patient does not know if he lost consciousness. He states that he fell because he tripped in a hole. He denies any headache, visual changes, chest pain, shortness of breath, abdominal pain, changes to urination or bowel movements lately. Does arrive with a Rock bag in place. Review of Systems Status of ROS: See HPI Meds/Allgy Home Medications Ambulatory Orders Medication Instructions Recorded Confirmed atorvastatin 20 mg tablet 20 mg PO DAILY PM 10/16/18 0 09/22/24 bupropion HCl 100 mg tablet 300 mg PO DAILY 10/16/18 0 09/22/24 clopidogrel 75 mg tablet 75 mg PO DAILY 10/16/1808/28 glipizide 2.5 mg tablet, extended 10 mg PO BID 09/22/24 release 24 hr hydroxychloroquine 200 mg tablet 2 tab PO DAILY 09/22/24 losartan 50 mg tablet 25 mg PO DAILY 10/16/1808/28 methotrexate sodium 2.5 mg tablet 20 mg PO Q7D 9 09/22/24 methylphenidate HCl 20 mg biphasic 10 mg PO DAILY 09/2809/22/24 30-70 capsule,extended release sulfasalazine 500 mg tablet 500 mg PO BID 10/16/18 tamsulosin 0.4 mg capsule 0.4 mg PO DAILY PM 10/16/18 09/22/24 melatonin 3 mg tablet 3 mg PO DAILY 05/07/2009/22 calcium carbonate 1 ea PO DAILY 03/30/2109/22 cyanocobalamin (vitamin B-12) 1 ea PO DAILY 03/30/21 0 09/22/24 1,000 mcg capsule trazodone 50 mg tablet 3 ea PO DAILY 03/30/2109/22 cefdinir 300 mg capsule 300 mg PO BID #20 caps 09/22 ergocalciferol (vitamin D2) 1,250 1,250 mcg PO DAILY 0 09/22/24 09/22/24 mcg (50,000 unit) capsule terbinafine HCl 250 mg tablet 250 mg PO DAILY 09/22/24 09/22/24 Allergies Allergies Allergy/AdvReac Type Severity Reaction Status Date / Time ciprofloxacin Allergy Unknown Verified 12/25/24 23:39 hydrochlorothiazide Allergy Unknown Verified 12/25/24 23:39 ketoconazole Allergy Unknown Verified 12/25/24 23:39 metformin Allergy Unknown Verified 12/25/24 23:39 metoclopramide Allergy Unknown Verified 12/25/24 23:39 PFSH Active Problems All Active Problems (Updated 12/26/24 @ 07:19 by Eleuterio Vasquez MD) Encephalopathy (Acute) Dehydration (Acute) Flank pain (Acute) Urinary tract infection (Acute) Urinary retention (Acute) Hyperglycemia (Acute) Fall (Acute) Medical History Medical History (Updated 12/26/24 @ 07:19 by Eleuterio Vasquez MD) Prostate cancer Stroke Social History Social History Do you vape?: No Living arrangement: At home Living Condition: With family Do you feel safe in your home environment?: Yes History of physical, verbal, emotional, or financial abuse?: No POLST Patient has POLST: No Exam Exam Vital Signs: Vital Signs x48h Pulse Resp BP Pulse Ox 12/26/24 06:52 84 20 144/90 H 97 12/26/24 05:22 86 16 130/81 97 12/26/24 03:30 87 16 149/80 H 97 12/26/24 01:52 81 16 163/99 H 98 12/26/24 00:22 82 16 176/94 H 97 Constitutional Appears mildly disheveled, resting on examination bed, no acute distress. HENMT Abrasion to posterior scalp at the crown, minimal swelling.No hemotympanum bilaterally. Pupils 2 mm and minimally reactive bilaterally. No facial tenderness. Eyes PERRL Neck/C-Spine Nontender to palpation posterior C-spine, supple. No step-offs or deformities Respiratory breath sounds equal bilaterally and normal respiratory effort Clear to auscultation bilaterally, satting at 98% on room air. Cardiovascular Nontender palpation of chest. Regular rate and rhythm, moderately hypertensive to the 160s systolics, normal S1-S2, no murmurs. Gastrointestinal abdomen soft to palpation, nontender to palpation and nontender to percussion Genitourinary no CVA tenderness and bladder normal to palpation Back/Pelvis spine normal to inspection, no thoracic spine tenderness and no lumbar spine tenderness No step-offs or deformities to the thoracic or lumbar spine. Extremities Abrasion to right posterior elbow.Otherwise intact flexion and extension mechanism and all 4 extremities. Nontender through thorough manipulation and palpation of all extremities Psychiatry GCS 14, 1 for confusion did not know location, year. Cranial nerves II through XII intact grossly. 5 out of 5 strength in bilateral upper and lower extremities. Sensation is intact throughout habitus. Results Vitals Vitals: Vital Signs - 24 hr 12/25/24 23:32 12/26/24 00:22 12/26/24 01:52 Temperature 36.2 C L Temperature Source Temporal Artery Scan Pulse Rate 89 82 81 Respiratory Rate 18 16 16 Blood Pressure 161/90 H 176/94 H 163/99 H O2 Saturation 99 97 98 O2 Source Room air Room air Room air Pain Intensity 4 12/26/24 03:30 12/26/24 03:39 12/26/24 05:22 Temperature Temperature Source Pulse Rate 87 86 Respiratory Rate 16 16 Blood Pressure 149/80 H 130/81 O2 Saturation 97 97 O2 Source Room air Room air Pain Intensity 5 12/26/24 06:52 Temperature Temperature Source Pulse Rate 84 Respiratory Rate 20 Blood Pressure 144/90 H O2 Saturation 97 O2 Source Room air Pain Intensity Oxygen O2 Source Room air Labs Labs: Laboratory Tests 12/25/24 12/26/24 23:40 00:50 WBC 7.2 RBC 4.23 L Hgb 10.4 L Hct 32.6 L MCV 77.1 L MCH 24.6 L MCHC 31.9 L RDW 18.3 H Plt Count 195 MPV 10.6 Neut # (Auto) 4.8 Lymph # (Auto) 1.7 Bennett # (Auto) 0.5 Eos # (Auto) 0.1 Baso # (Auto) 0.1 Absolute Nucleated RBC 0.00 Nucleated RBC % 0.0 Sodium 135 Potassium 3.9 Chloride 101 Carbon Dioxide 25 Anion Gap 9.0 BUN 17 Creatinine 1.3 Estimated GFR (MDRD) 54 L Glucose 197 H Calcium 8.9 Total Bilirubin 0.5 AST 12 ALT 7 L Alkaline Phosphatase 79 Troponin I High Sens 4.4 Total Protein 6.8 Albumin 3.8 Globulin 3.0 Albumin/Globulin Ratio 1.3 Urine Color YELLOW Urine Clarity HAZY Urine pH 7.0 Ur Specific Mcloud 1.005 Urine Protein NEGATIVE Urine Glucose (UA) NEGATIVE Urine Ketones NEGATIVE Urine Occult Blood TRACE Urine Nitrite NEGATIVE Urine Bilirubin NEGATIVE Urine Urobilinogen 0.2 (NORMAL) Ur Leukocyte Esterase SMALL H Urine RBC 0-5 Urine WBC 4-5 Ur Squamous Epith Cells RARE Squamous Amorphous Sediment Moderate Urine Bacteria Moderate H Ur Microscopic Review INDICATED Urine Culture Comments INDICATED Ethyl Alcohol < 10.0 PD Medical Decision Making ED course ED course: Assessment: 74-year-old male presenting with EMS due to acting strangely, ground-level fall. According to daughter, he has been having increasing changes in his mental status over the last couple days. She states that he has been getting worked up for dementia over the last 2 months. He was diagnosed with a UTI earlier this week, and started on Bactrim, but she thinks in the last 48 hours he is becoming increasingly altered. GCS 14 on arrival, 1 offer confusion. C-collar was applied. During my assessment, airway, breathing, circulation all intact. He did have an abrasion to his posterior right elbow, as well as over an abrasion to his posterior scalp. DDx: Includes but is not limited to, ground-level fall, mechanical fall, syncope, delirium, UTI, concussion, skull fracture, traumatic subarachnoid hemorrhage, subdural hemorrhage, C-spine fracture, C-spine ligamentous injury, elbow fracture, dementia, etc. Workup: Hemoglobin 10.4, otherwise labs gross unremarkable. Urine demonstrates small leukocyte esterase, moderate amounts of bacteria. Cultures pending. EKG per my read: Sinus rhythm, with few PVCs, left axis deviation, MN of 241, otherwise regular intervals, no acute ischemic changes. CT head, CT C-spine, CT thoracic spine, CT lumbar spine, CT chest with contrast, CT abdomen with contrast unremarkable without evidence of acute injury. Treatment: Rocephin 2 g Discussion: After conversation with family member, she is concerned about his home status. Currently lives alone, and historically has never left the house, been confused in the way that he was today. She states that he has not normally fall. She is concerned about his safety going home. Prior to my signout, I discussed his presentation with on-call hospitalist group, who stated that he could be admitted for ops, pending bed availability and for safe discharge planning. He has otherwise remained stable in the ER throughout the duration of my shift. Patient was handed off to Dr. Bonifacio Vasquez. Please refer to his note for further details of Al course throughout the day today. Impression: Ground-level fall, UTI, dementia, Encephalopathy Condition: Stable Disposition: Boarding in ER Discharge Plan Discharge Patient Disposition: ED Place in Observation Condition: Stable Clinical Impression: Encephalopathy Urinary tract infection Qualifiers: Urinary tract infection type: acute cystitis Hematuria presence: without hematuria Qualified Code(s): N30.00 - Acute cystitis without hematuria Prescriptions: No Action clopidogrel 75 MG tablet 75 mg PO DAILY methotrexate sodium 2.5 MG tablet 20 mg PO Q7D hydroxychloroquine 200 MG tablet 2 tab PO DAILY methylphenidate HCl 20 MG capsule, ER biphasic 30-70 10 mg PO DAILY losartan 50 MG tablet 25 mg PO DAILY atorvastatin 20 MG tablet 20 mg PO DAILY PM sulfasalazine 500 MG tablet 500 mg PO BID bupropion HCl 100 MG tablet 300 mg PO DAILY tamsulosin 0.4 MG capsule 0.4 mg PO DAILY PM glipizide 2.5 MG tablet extended release 24hr 10 mg PO BID melatonin 3 MG tablet 3 mg PO DAILY trazodone 50 MG tablet 3 ea PO DAILY calcium carbonate 600 MG tablet 1 ea PO DAILY cyanocobalamin (vitamin B-12) 1,000 MCG capsule 1 ea PO DAILY ergocalciferol (vitamin D2) 1,250 mcg (50,000 unit) capsule 1,250 mcg PO DAILY terbinafine HCl 250 mg tablet 250 mg PO DAILY cefdinir 300 mg capsule 300 mg PO BID Qty: 20 0RF Print Language: Korean Stand Alone Forms: PCP List
--- NOTE | 2024-12-26 00:45 | CT Report ---
PROCEDURE: CT Head WO INDICATIONS: trauma, fall, AMS TECHNIQUE: CT of the head was performed, without intravenous contrast. Reformats: Coronal and sagittal. For radiation dose reduction, the following was used: automated exposure control, adjustment of mA and/or kV according to patient size. COMPARISON: CT head 11/19/2024 FINDINGS: Image quality: Diagnostic. CSF spaces: Basal cisterns are patent. No extra-axial fluid collections. Ventricles are symmetric in size and shape. Brain: No midline shift. No intracranial masses or hemorrhage. Small area of chondromalacia in the medial temporal lobe. Chronic lacunar infarcts in the left thalamus andthe right basal ganglia. Hypodensities in the subcortical and periventricular white matter are most commonly seen in setting of chronic microvascular ischemic changes. Age-related cerebral and cerebellar volume loss is seen. Intracranial vascular calcifications are noted in the internal carotid arteries. Skull and face: Calvarium and visualized facial bones are intact, without suspicious lesions. Sinuses: Visualized sinuses and mastoids are clear. IMPRESSION: No acute intracranial pathology. Stable chronic findings. Reviewed by: Gerardo Dodd MD on 12/26/2024 12:43 AM PDT Approved by: Gerardo Dodd MD on 12/26/2024 12:43 AM PDT Station ID: [id number]
--- NOTE | 2024-12-26 00:50 | CT Report ---
PROCEDURE: CT Cervical Spine WO INDICATIONS: trauma TECHNIQUE: Noncontrast images acquired from the skull base to the T4 level. Sagittal and coronal reformats were then constructed. For radiation dose reduction, the following was used: automated exposure control, adjustment of mA and/or kV according to patient size. COMPARISON: Cervical spine CT 11/19/2024 FINDINGS: Image quality: Excellent. Bones: No acute fractures or dislocations. Visualized superior ribs are intact. Partial osseous fusion at the C3-4 level. Multilevel disc space narrowing and degenerative endplate changes. Multilevel uncovertebral joint and facet hypertrophy. Soft tissues: Prevertebral soft tissues are normal in thickness. No paravertebral hematomas. No apical pneumothoraces. IMPRESSION: No acute, displaced fracture or traumatic subluxation. Reviewed by: Gerardo Dodd MD on 12/26/2024 12:48 AM PDT Approved by: Gerardo Dodd MD on 12/26/2024 12:48 AM PDT Station ID: [id number]
[2024-12-26 01:05] LABS: GLUCOSE, URINE (UA) NEGATIVE (NEGATIVE); KETONES,URINE (UA) NEGATIVE (NEGATIVE); OCCULT BLOOD,URINE TRACE (NEGATIVE)
--- NOTE | 2024-12-26 01:05 | CT Report ---
PROCEDURE: CT Chest W INDICATIONS: trauma, fall CONTRAST: 100 ML OMNI 300 TECHNIQUE: After the administration of intravenous contrast, a CT scan of the chest was performed. Images were recorded and evaluated at appropriate window settings. Reformats: axial MIP of the chest, coronal and sagittal. For radiation dose reduction, the following was used: automated exposure control, adjustment of mA and/or kV according to patient size. COMPARISON: Chest radiograph 09/22/2024. FINDINGS: Image quality: Diagnostic. Chest wall and lower neck: No thyroid nodule which requires sonographic follow up. No breast mass. No axillary or supraclavicular adenopathy by size. Lungs and pleura: No consolidation. No pleural effusions. No pneumothorax. Numerous small pulmonary nodules throughout both lungs measuring up to 6 mm in size. Mediastinum: Heart size is normal. No pericardial effusion. No large vessel abnormality. No mediastinal adenopathy by size criteria. Bones: No aggressive osseous abnormality. Old healed left posterior rib fractures. Upper Abdomen: Separately dictated. IMPRESSION: 1.No acute traumatic findings in the chest. 2.Numerous small pulmonary nodules. Recommend follow-up chest CT in 3-6 months. Reviewed by: Gerardo Dodd MD on 12/26/2024 1:04 AM PDT Approved by: Gerardo Dodd MD on 12/26/2024 1:04 AM PDT Station ID: [id number]
--- NOTE | 2024-12-26 01:07 | CT Report ---
PROCEDURE: CT Thoracic Spine WO INDICATIONS: fall, trauma TECHNIQUE: Noncontrast images acquired through the region of interest in the thoracic spine. Sagittal and coronal reformats were then constructed. For radiation dose reduction, the following was used: automated exposure control, adjustment of mA and/or kV according to patient size. COMPARISON: None. FINDINGS: Image quality: Excellent. Bones: There is normal overall bony alignment. No acute vertebral body compression fractures. No suspicious sclerotic or lytic bony lesions. Central spinal canal is of normal overall caliber. Mild degenerative endplate changes. Soft tissues: No paravertebral masses or hematomas. Numerous small pulmonary nodules are present. IMPRESSION: 1.No acute thoracic spine fracture. 2.Multiple small pulmonary nodules. Recommend follow-up CT chest in 3-6 months. Reviewed by: Gerardo Dodd MD on 12/26/2024 1:06 AM PDT Approved by: Gerardo Dodd MD on 12/26/2024 1:06 AM PDT Station ID: [id number]
[2024-12-26 01:17] LABS: AMORPHOUS SEDIMENT,UR Moderate /LPF; SQUAMOUS EPITHELIAL CELL,UR RARE Squamous (<= Few)
--- NOTE | 2024-12-26 01:18 | CT Report ---
PROCEDURE: CT Abdomen/Pelvis W INDICATIONS: Trauma, fall CONTRAST: 100 ML OMNI 300 TECHNIQUE: After the administration of intravenous contrast, a CT scan of the abdomen and pelvis was performed. Images were recorded and evaluated at appropriate window settings. Reformats: coronal and sagittal. For radiation dose reduction, the following was used: automated exposure control, adjustment of mA and/or kV according to patient size. COMPARISON: CT abdomen/pelvis 05/20/2022. FINDINGS: Image quality: Diagnostic. Lower chest: Separately dictated. Liver: No solid mass. Gallbladder: Status post cholecystectomy. Biliary tree: No intrahepatic or extrahepatic dilation, accounting for age. Spleen: No splenomegaly. Pancreas: No pancreatic ductal dilation. Adrenals: No adrenal nodule. Kidneys and ureters: No hydronephrosis. No renal cystic lesion which requires follow up. No solid mass. Stomach, bowel and peritoneum: Mild bowel thickening versus underdistention throughout the majority of the colon. Normal appendix. Small bowel loops are unremarkable. No pathologic free fluid. Lymph nodes: No central or retroperitoneal adenopathy. Vessels: No infrarenal aortic aneurysm. Patent portal vein. PELVIS Reproductive organs: Prostate is enlarged. Bladder: Marked circumferential bladder wall thickening. A Rock catheter is present within the bladder and multiple foci of air present. Pelvic lymph nodes: No pelvic adenopathy by size criteria. Bones: No aggressive osseous abnormality. Other: No significant ventral or inguinal hernia. Small fat-containing periumbilical hernia. IMPRESSION: 1.No acute traumatic findings in the abdomen or pelvis. 2.Severe circumferential bladder wall thickening, not well evaluated due to underdistention related to a Rock catheter. Correlate for cystitis or possibly urothelial neoplasm. 3.Prostatomegaly. 4.Long segment bowel wall thickening in the transverse, descending, and sigmoid colon and the rectum may be related to underdistention versus a nonspecific proctocolitis. Reviewed by: Gerardo Dodd MD on 12/26/2024 1:17 AM PDT Approved by: Gerardo Dodd MD on 12/26/2024 1:17 AM PDT Station ID: [id number]
--- NOTE | 2024-12-26 01:21 | CT Report ---
PROCEDURE: CT Lumbar Spine WO INDICATIONS: trauma, fall TECHNIQUE: Noncontrast images acquired from the T12 level to the sacrum. Sagittal and coronal reformats were constructed. For radiation dose reduction, the following was used: automated exposure control, adjustment of mA and/or kV according to patient size. COMPARISON: CT abdomen/pelvis 05/20/2022. FINDINGS: Image quality: Excellent. Bones: There is mild levoconvex curvature. No acute vertebral body compression fractures. No suspicious lytic or blastic bony lesions. No pars defects. Degenerative changes and partial osseous bridging across the sacroiliac joints Discs: Multilevel disc space narrowing degenerative endplate changes. Multilevel facet hypertrophy. Findings are most notable at the L4-5 level where circumferential disc bulging, facet hypertrophy, buckling of the ligamentum flavum result in moderate to severe narrowing of the spinal canal with efface ment of the lateral recesses as well as moderate to severe right and moderate left neural foraminal narrowing. No other high-grade spinal canal stenosis. Soft tissues: No retroperitoneal masses or hematomas. Visualized aorta is normal in caliber. IMPRESSION: 1.No acute osseous fracture. 2.At L4-5, degenerative changes result in moderate to severe narrowing of the spinal canal, effacement of the lateral recesses, and moderate to severe right and moderate left neuroforaminal narrowing. 3.Additional mild to moderate multilevel degenerative disc disease and facet hypertrophy throughout the remainder of the lumbar spine. Reviewed by: Gerardo Dodd MD on 12/26/2024 1:20 AM PDT Approved by: Gerardo Dodd MD on 12/26/2024 1:20 AM PDT Station ID: [id number]
[2024-12-26] MEDS: ACETAMINOPHEN 500 MG TABLET PO STA ×2 (03:39→10:33)
[2024-12-26] MEDS: cefTRIAXone 2 GM in SODIUM CHLORIDE 0.9% MINIBAG 100 ML IV STA (03:39)
--- NOTE | 2024-12-26 07:29 | ED Physician Documentation ---
ED Addendum Addendum Addendum: This patient was signed out to me pending potential observation in the hospital for resistant urinary tract infection and worsening encephalopathy in the setting of dementia. There are no current beds at this time, but we will reassess the need once this afternoon when hospital discharges are completed. He has already received ceftriaxone for his urinary tract infection but appears to have failed outpatient Bactrim management. Patient was accepted under observation to the hospital for continued care. He did ask for Tylenol for generalized muscle aches. Discharge Plan Discharge Patient Disposition: ED Place in Observation Condition: Stable Clinical Impression: Encephalopathy Urinary tract infection Qualifiers: Urinary tract infection type: acute cystitis Hematuria presence: without hematuria Qualified Code(s): N30.00 - Acute cystitis without hematuria Interventions: ED Admission Assessment Last Done: 12/26/24 12:40 Vitals documented within 30 minutes of discharge?: Yes
--- NOTE | 2024-12-26 09:01 | XRAY Report ---
PROCEDURE: XR Elbow 3+V RT INDICATIONS: fall. trauma to right elbow TECHNIQUE: 3 views of the elbow were acquired. COMPARISON: None. FINDINGS: Bones: No acute fractures or dislocations. No suspicious bony lesions. Joint spaces are preserved. Soft tissues: No effusion. No suspicious soft tissue calcifications or masses. A rounded soft tissue calcification adjacent to the lateral epicondyle may represent a phlebolith. Axillary arterial calcification is present. IMPRESSION: No acute bony abnormality or significant joint effusion. This is concordant with the preliminary report. Reviewed by: Gogo Suero MD on 12/26/2024 7:59 AM SUZY Approved by: Gogo Suero MD on 12/26/2024 7:59 AM PATRINA Station ID: [id number]
[2024-12-26] MEDS ORDERED: METHOTREXATE 2.5 MG TABLET PO SCH (12:53)
[2024-12-26] MEDS ORDERED: ONDANSETRON ODT 4 MG TABLET TL PRN (12:53)
[2024-12-26] MEDS ORDERED: SODIUM CHLORIDE FLUSH 0.9% 10 ML SYRINGE IVP PRN (12:53)
[2024-12-26] MEDS: SODIUM CHLORIDE 0.9% 1,000 ML IV SCH (13:28)
[2024-12-26] MEDS: ACETAMINOPHEN 325 MG TABLET PO PRN (13:43)
--- NOTE | 2024-12-26 13:58 | PHARMACY PROGRESS NOTE ---
Best Possible Medication History Admit Date and Time: 12/26/24 [id number] Home Medications Medication Instructions Recorded Confirmed Type atorvastatin 20 mg tablet 20 mg PO DAILY PM 10/16/18 0 12/26/24 History bupropion HCl 100 mg tablet 300 mg PO DAILY 10/16/18 0 12/26/24 History clopidogrel 75 mg tablet 75 mg PO DAILY 10/16/1811/29 History glipizide 2.5 mg tablet, extended 10 mg PO BID 9 12/26/24 History release 24 hr losartan 50 mg tablet 25 mg PO DAILY 10/16/1811/29 History sulfasalazine 500 mg tablet 500 mg PO BID 10/16/18 History tamsulosin 0.4 mg capsule 0.4 mg PO DAILY PM 10/16/18 12/26/24 History cyanocobalamin (vitamin B-12) 1 ea PO DAILY 03/30/21 0 12/26/24 History 1,000 mcg capsule trazodone 50 mg tablet 150 mg PO QPM 03/30/2112/26 History Processed by: Nursing Medications reviewed in ED?: Yes Medication History completed: Yes Patient Interview: Pt unable to participate Secondary Source(s): Other family member and Previous admit records [facility] Statement: As the person ultimately responsible for medication therapy, providers are able to order a medication from an existing home medication list in [facility] via the "Reconcile Routine" prior to Confirmation of that medication by support dba. Such practice is discouraged except when the physician, in their clinical judgment, deems that a medical need exists for a medication without regard to previous use.
[2024-12-26] MEDS: oxyCODONE 5 MG TABLET PO PRN (14:54)
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
[2024-12-26] MEDS: SODIUM CHLORIDE FLUSH 0.9% 10 ML SYRINGE IVP SCH (19:02)
[2024-12-26] MEDS ORDERED: MELATONIN 3 MG TABLET PO SCH (21:00)
[2024-12-26] MEDS: TAMSULOSIN 0.4 MG CAPSULE PO SCH (21:39)
[2024-12-26] MEDS: ATORVASTATIN 10 MG TABLET PO SCH (21:39)
[2024-12-26] MEDS: INSULIN LISPRO 300 UNIT/3 ML PEN SUBQ SCH (21:53)
[2024-12-27 04:52] LABS: HCT - HEMATOCRIT 29.6 % (42.0-52.0); HGB - HEMOGLOBIN 9.1 g/dL (14.0-18.0); MEAN PLATELET VOLUME 10.7 fL (7.4-11.4); NRBC ABSOLUTE COUNT (AUTO) 0.00 x10^3/uL; NUCLEATED RED BLOOD CELLS AUTO 0.0 /100WBC; PLT - PLATELET COUNT 153 10^3/uL (130-450); RED CELL DISTRIBUTION WIDTH 18.2 % (12.0-15.0)
[2024-12-27 05:09] LABS: BUN - BLOOD UREA NITROGEN 13.0 mg/dL (6-20); CARBON DIOXIDE - CO2 28.0 mmol/L (21-32); CREATININE 1.1 mg/dL (0.6-1.3); GFR - MDRD 65.0 (>89)
[2024-12-27] MEDS ORDERED: CALCIUM CARBONATE 600 MG PO SCH (09:00)
[2024-12-27] MEDS ORDERED: TERBINAFINE 250 MG TABLET PO SCH (09:00)
[2024-12-27] MEDS ORDERED: ERGOCALCIFEROL 50,000 UNIT CAPSULE PO SCH (09:00)
[2024-12-27] MEDS: ENOXAPARIN 40 MG/0.4 ML SYRINGE SUBQ SCH (09:15)
[2024-12-27] MEDS: cefTRIAXone 1 GM in SODIUM CHLORIDE 0.9% MINIBAG 100 ML IV SCH (09:15)
[2024-12-27] MEDS: CYANOCOBALAMIN 500 MCG TABLET PO SCH (09:16)
[2024-12-27] MEDS: LOSARTAN 50 MG TABLET PO SCH (09:16)
[2024-12-27] MEDS: CLOPIDOGREL 75 MG TABLET PO SCH (09:17)
[2024-12-27] MEDS: ONDANSETRON 4 MG/2 ML VIAL IVP PRN (10:29)
[2024-12-27 12:06] LABS: ESTIMATED AVERAGE GLUCOSE 212 mg/dL (70-100); HEMOGLOBIN A1c% 9.0 % (4.27-6.07)
--- NOTE | 2024-12-27 19:46 | PROVIDER PROGRESS NOTE ---
Subjective Prog Note Date Prog Note Date: 12/27/24 Prog Note Time: 19:45 Subjective Subjective: The patient was very grumpy this morning. Deeply asleep. Claims that he did not sleep all night but in fact he did sleep all night. By late morning and early afternoon he was sitting up in a chair, chair chatting. Daughter and granddaughter came to visit. They do feel he is still deeply confused. He cannot focus, and his mind goes all the way back to the 1960s and then will confuse himself with the memory that happened last week and somehow make the 2 events 1 event. He is hallucinating. Sees people that are not in the room. Points to objects that he wants them to come get for him like shoes but they are not on the room. Nursing reports that when he stands he walks with terrible lack of balance but manages to get himself to the bathroom. His daughter and granddaughter states that he always looks like he is drunk any furniture surface. That is stable for him. So on the basis of encephalopathy, he is not cleared yet. He is not at baseline. Current Medications Current Medications Current Medications: Current Medications Generic Name Dose Route Start Last Admin Trade Name Freq PRN Reason Stop Dose Admin Acetaminophen 650 mg 12/26/24 12:53 12/26/24 13:43 Acetaminophen 325 Mg Tablet PO 650 mg Q4HR PRN Administration Pain 1 to 4, or Fever Atorvastatin Calcium 20 mg 12/26/24 21:00 12/26/24 21:39 Atorvastatin 10 Mg Tablet PO 20 mg QPM DEJON Administration Bupropion HCl 300 mg 12/27/24 09:00 12/27/24 09:17 Bupropion Xl 150 Mg Tablet PO 300 mg DAILY DEJON Administration Clopidogrel Bisulfate 75 mg 12/27/24 09:00 12/27/24 09:17 Clopidogrel 75 Mg Tablet PO 75 mg DAILY DEJON Administration Cyanocobalamin 500 mcg 12/27/24 09:00 12/27/24 09:16 Cyanocobalamin 500 Mcg Tablet PO 500 mcg DAILY DEJON Administration Enoxaparin Sodium 40 mg 12/27/24 09:00 12/27/24 09:15 Enoxaparin 40 Mg/0.4 Ml Syringe SUBQ 40 mg DAILY DEJON Administration Glipizide 10 mg 12/26/24 21:00 12/27/24 09:17 Glipizide Er 2.5 Mg Tablet PO 10 mg BID DEJON Administration Ceftriaxone Sodium 1 gm/ 100 mls @ 200 mls/hr 12/27/24 09:00 12/27/24 10:09 Sodium Chloride IV Infused DAILY DEJON Infusion Insulin Human Lispro 1 - 9 unit 12/26/24 21:00 12/27/24 17:04 Insulin Lispro 300 Unit/3 Ml Pen SUBQ 5 unit 0800,1200,1700,2100 DEJON Administration Protocol Losartan Potassium 25 mg 12/27/24 09:00 12/27/24 09:16 Losartan 50 Mg Tablet PO 25 mg DAILY DEJON Administration Ondansetron HCl 4 mg 12/26/24 12:53 Ondansetron Odt 4 Mg Tablet TL Q6HR PRN Nausea / Vomiting Ondansetron HCl 4 mg 12/26/24 12:53 12/27/24 10:29 Ondansetron 4 Mg/2 Ml Vial IVP 4 mg Q6HR PRN Administration Nausea / Vomiting Oxycodone HCl 5 mg 12/26/24 12:53 12/27/24 04:42 Oxycodone 5 Mg Tablet PO 5 mg Q4HR PRN Administration Pain 5 to 7 Sodium Chloride 10 ml 12/26/24 12:53 Sodium Chloride Flush 0.9% 10 Ml Syringe IVP PRN PRN NEEDED PER PROVIDER ORDERS Sodium Chloride 10 ml 12/26/24 17:00 12/27/24 17:04 Sodium Chloride Flush 0.9% 10 Ml Syringe IVP 10 ml 0100,0900,1700 DEJON Administration Sulfasalazine 500 mg 12/26/24 21:00 12/27/24 09:28 Sulfasalazine 500 Mg Tablet PO 500 mg BID DEJON Administration Tamsulosin HCl 0.4 mg 12/26/24 21:00 12/26/24 21:39 Tamsulosin 0.4 Mg Capsule PO 0.4 mg QPM DEJON Administration Trazodone HCl 150 mg 12/26/24 21:00 12/26/24 21:39 Trazodone 50 Mg Tablet PO 150 mg QPM DEJON Administration Objective Vital Signs/Intake & Output Reviewed Vital Signs: Yes Vital Signs: Vital Signs x48h Temp Pulse Resp BP Pulse Ox 12/27/24 16:36 36.4 C L 89 16 107/61 99 Intake & Output: Intake & Output 12/24/24 12/25/24 12/26/24 12/27/24 23:59 23:59 23:59 23:59 Intake Total 340 / 340 2055 Output Total 200 / 200 875 / 875 Balance 140 / 140 1181 / 1181 Weight (kg) 75.7 kg 73 kg 73.5 kg Objective General Appearance: positive No acute distress, Alert and Other (Disheveled elderly gentleman with hair flying every which way, along disheveled h[place], partially edentulous sitting up in the chair eating lunch. Able to feed himself) Eyes Bilateral: positive PERRL, EOMI and No scleral icterus ENT: positive No signs of dehydration Neck: positive No JVD; negative Stiff neck or Carotid bruit Respiratory: positive Chest non-tender, No respiratory distress and Breath sounds nml; negative Wheezes, Rales or Rhonchi Cardiovascular: positive Regular rate & rhythm and No murmur Abdomen: positive Non-tender, No organomegaly, Nml bowel sounds and No distention Skin: positive Color nml, No rash and Warm Extremities: positive Non-tender and Full ROM Neurologic/Psychiatric: positive CN's nml (2-12), Disoriented to place (At times. He does remember he is in the hospital. Sometimes remembers why he is here. He knows this because he keeps on falling) and Disoriented to time; negative Motor nml (Moderate cerebellar ataxia.) Lab Results 12/27/24 04:38 12/27/24 04:38 Other Labs: Lab Results x24hrs 12/27/24 12/27/24 12/27/24 Range/Units 16:28 11:25 07:36 WBC (4.8-10.8) x10^3/uL RBC (4.70-6.10) 10^6/uL Hgb (14.0-18.0) g/dL Hct (42.0-52.0) % MCV (80.0-94.0) fL MCH (27.0-31.0) pg MCHC (32.0-36.0) g/dL RDW (12.0-15.0) % Plt Count (130-450) 10^3/uL MPV (7.4-11.4) fL Neut # (Auto) (1.5-6.6) 10^3/uL Lymph # (Auto) (1.5-3.5) 10^3/uL [place] # (Auto) (0.0-1.0) 10^3/uL Eos # (Auto) (0.0-0.7) 10^3/uL Baso # (Auto) (0.0-0.1) 10^3/uL Absolute Nucleated RBC x10^3/uL Nucleated RBC % /100WBC Sodium (135-145) mmol/L Potassium (3.5-4.5) mmol/L Chloride (101-111) mmol/L Carbon Dioxide (21-32) mmol/L Anion Gap (6-13) BUN (6-20) mg/dL Creatinine (0.6-1.3) mg/dL Estimated GFR (MDRD) (>89) Glucose (74-104) mg/dL POC Whole Bld Glucose 227 151 197 (70-100) mg/dL Estimat Average Glucose (70-100) mg/dL Hemoglobin A1c % (4.27-6.07) % Calcium (8.5-10.3) mg/dL 12/27/24 12/26/24 Range/Units 04:38 21:50 WBC 5.3 (4.8-10.8) x10^3/uL RBC 3.75 L (4.70-6.10) 10^6/uL Hgb 9.1 L (14.0-18.0) g/dL Hct 29.6 L (42.0-52.0) % MCV 78.9 L (80.0-94.0) fL MCH 24.3 L (27.0-31.0) pg MCHC 30.7 L (32.0-36.0) g/dL RDW 18.2 H (12.0-15.0) % Plt Count 153 (130-450) 10^3/uL MPV 10.7 (7.4-11.4) fL Neut # (Auto) 3.1 (1.5-6.6) 10^3/uL Lymph # (Auto) 1.8 (1.5-3.5) 10^3/uL [place] # (Auto) 0.4 (0.0-1.0) 10^3/uL Eos # (Auto) 0.1 (0.0-0.7) 10^3/uL Baso # (Auto) 0.1 (0.0-0.1) 10^3/uL Absolute Nucleated RBC 0.00 x10^3/uL Nucleated RBC % 0.0 /100WBC Sodium 134 L (135-145) mmol/L Potassium 4.1 (3.5-4.5) mmol/L Chloride 103 (101-111) mmol/L Carbon Dioxide 28 (21-32) mmol/L Anion Gap 3.0 L (6-13) BUN 13 (6-20) mg/dL Creatinine 1.1 (0.6-1.3) mg/dL Estimated GFR (MDRD) 65 L (>89) Glucose 181 H (74-104) mg/dL POC Whole Bld Glucose 231 (70-100) mg/dL Estimat Average Glucose 212 H (70-100) mg/dL Hemoglobin A1c % 9.0 H (4.27-6.07) % Calcium 8.2 L (8.5-10.3) mg/dL Assessment/Plan Problem List (1) Encephalopathy: Impression: Currently encephalopathy is being attributed to his UTI from urinary retention. He has a chronic indwelling Rock catheter in place. Urine is currently growing gram-negative kylee. Identification pending. I will continue IV antibiotics. I have stopped IV fluids since he is eating well. I hope that his sensorium clears. He is better today than he was yesterday but still not at baseline. As such I am changing him from observation status to inpatient status on the fact that he has not resolved under observation care Qualifiers: Encephalopathy type: metabolic Qualified Code(s): G93.41 - Metabolic encephalopathy (2) Urinary tract infection: Impression: Day #2 of antibiotics. Currently on ceftriaxone. I am awaiting the ID and sensitivities and then I will change him to oral antibiotics. 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 They interviewed a new caregiver today and they are now in the process of applying to [facility] to get that caregiver paid. This patient is 100% service-connected. When he is discharged, he will be discharged to home. (4) Prostate cancer: Impression: An ongoing problem. Patient has declined treatment. Currently symptomatic with urinary retention and has a chronic indwelling Rock catheter since October. (5) Type 2 diabetes mellitus, controlled: Impression: On sliding scale insulin since I am withholding his sulfonylurea. 5 units last night, 3 units before breakfast, 1 unit before lunch, 5 units before dinner. I will give him 10 units of Lantus tonight. (6) Stroke: Impression: With left-sided residual. Dementia. But no aphasia and no dysphagia. Currently stable without any change.Basically wheelchair-bound. Usually has the strength to be able to transfer from chair to toilet, chair to chair, or chair to bed. Currently significantly deconditioned. When I send him home I will send him home with home health PT and OT. Qualifiers: CVA mechanism: occlusion Precerebral and cerebral artery: middle cerebral artery Laterality of affected vessel: left Qualified Code(s): I63.512 - Cerebral infarction due to unspecified occlusion or stenosis of left middle cerebral artery
[2024-12-28 04:41] LABS: HCT - HEMATOCRIT 27.8 % (42.0-52.0); HGB - HEMOGLOBIN 8.6 g/dL (14.0-18.0); MEAN PLATELET VOLUME 10.3 fL (7.4-11.4); NRBC ABSOLUTE COUNT (AUTO) 0.00 x10^3/uL; NUCLEATED RED BLOOD CELLS AUTO 0.0 /100WBC; PLT - PLATELET COUNT 144 10^3/uL (130-450); RED CELL DISTRIBUTION WIDTH 18.3 % (12.0-15.0)
[2024-12-28 05:25] LABS: BUN - BLOOD UREA NITROGEN 17.0 mg/dL (6-20); CARBON DIOXIDE - CO2 28.0 mmol/L (21-32); CREATININE 1.1 mg/dL (0.6-1.3); GFR - MDRD 65.0 (>89)
[2024-12-28] MEDS: PANTOPRAZOLE 40 MG TABLET PO SCH (08:27)
--- NOTE | 2024-12-28 14:44 | PROVIDER PROGRESS NOTE ---
Subjective Prog Note Date Prog Note Date: 12/27/24 Prog Note Time: 14:34 Subjective Subjective: Sitting up in bed this morning. Does not really want to eat his breakfast. He had a good goal to get a few bites because his sugar was too low. He is on glipizide XL 10 mg p.o. twice daily. Otherwise no fever, chills, cough, abdominal pain. Current Medications Current Medications Current Medications: Current Medications Generic Name Dose Route Start Last Admin Trade Name Freq PRN Reason Stop Dose Admin Acetaminophen 650 mg 12/26/24 12:53 12/26/24 13:43 Acetaminophen 325 Mg Tablet PO 650 mg Q4HR PRN Administration Pain 1 to 4, or Fever Atorvastatin Calcium 20 mg 12/26/24 21:00 12/27/24 20:53 Atorvastatin 10 Mg Tablet PO 20 mg QPM DEJON Administration Bupropion HCl 300 mg 12/27/24 09:00 12/28/24 08:27 Bupropion Xl 150 Mg Tablet PO 300 mg DAILY DEJON Administration Clopidogrel Bisulfate 75 mg 12/27/24 09:00 12/28/24 08:27 Clopidogrel 75 Mg Tablet PO 75 mg DAILY DEJON Administration Cyanocobalamin 500 mcg 12/27/24 09:00 12/28/24 08:27 Cyanocobalamin 500 Mcg Tablet PO 500 mcg DAILY DEJON Administration Enoxaparin Sodium 40 mg 12/27/24 09:00 12/28/24 08:27 Enoxaparin 40 Mg/0.4 Ml Syringe SUBQ 40 mg DAILY DEJON Administration Ceftriaxone Sodium 1 gm/ 100 mls @ 200 mls/hr 12/27/24 09:00 12/28/24 08:26 Sodium Chloride IV 100 mls/hr DAILY DEJON Administration Insulin Human Lispro 1 - 9 unit 12/26/24 21:00 12/28/24 11:37 Insulin Lispro 300 Unit/3 Ml Pen SUBQ 1 unit 0800,1200,1700,2100 DEJON Administration Protocol Losartan Potassium 25 mg 12/27/24 09:00 12/28/24 08:27 Losartan 50 Mg Tablet PO 25 mg DAILY DEJON Administration Ondansetron HCl 4 mg 12/26/24 12:53 Ondansetron Odt 4 Mg Tablet TL Q6HR PRN Nausea / Vomiting Ondansetron HCl 4 mg 12/26/24 12:53 12/27/24 10:29 Ondansetron 4 Mg/2 Ml Vial IVP 4 mg Q6HR PRN Administration Nausea / Vomiting Oxycodone HCl 5 mg 12/26/24 12:53 12/27/24 04:42 Oxycodone 5 Mg Tablet PO 5 mg Q4HR PRN Administration Pain 5 to 7 Pantoprazole Sodium 40 mg 12/28/24 08:00 12/28/24 08:27 Pantoprazole 40 Mg Tablet PO 40 mg QDAC DEJON Administration Sodium Chloride 10 ml 12/26/24 12:53 Sodium Chloride Flush 0.9% 10 Ml Syringe IVP PRN PRN NEEDED PER PROVIDER ORDERS Sodium Chloride 10 ml 12/26/24 17:00 12/28/24 08:28 Sodium Chloride Flush 0.9% 10 Ml Syringe IVP 10 ml 0100,0900,1700 DEJON Administration Sulfasalazine 500 mg 12/26/24 21:00 12/28/24 08:48 Sulfasalazine 500 Mg Tablet PO 500 mg BID DEJON Administration Tamsulosin HCl 0.4 mg 12/26/24 21:00 12/27/24 20:55 Tamsulosin 0.4 Mg Capsule PO 0.4 mg QPM DEJON Administration Trazodone HCl 150 mg 12/26/24 21:00 12/27/24 20:55 Trazodone 50 Mg Tablet PO 150 mg QPM EDJON Administration Objective Vital Signs/Intake & Output Reviewed Vital Signs: Yes Vital Signs: Vital Signs x48h Temp Pulse Resp BP Pulse Ox 12/28/24 07:49 36.6 C 88 16 121/68 95 Intake & Output: Intake & Output 12/25/24 12/26/24 12/27/24 12/28/24 23:59 23:59 23:59 23:59 Intake Total 340 / 340 2176 / 2176 Output Total 200 / 200 1025 / 1025 150 / 150 Balance 140 / 140 1151 / 1151 -150 / -150 Weight (kg) 75.7 kg 73 kg 73.5 kg 78 kg Objective General Appearance: positive No acute distress, Alert and Other (Slightly confused elderly gentleman, part of his teeth missing, wearing glasses, fly away long taylor hair and unkempt hargrove. Cooperative.) Eyes Bilateral: positive PERRL and EOMI ENT: positive No signs of dehydration Neck: positive No JVD; negative Stiff neck or Carotid bruit Respiratory: positive Chest non-tender, No respiratory distress and Breath sounds nml Cardiovascular: positive Regular rate & rhythm and No murmur Abdomen: positive Non-tender, No organomegaly and Nml bowel sounds Skin: positive Warm, Dry and Pallor Extremities: positive Non-tender Neurologic/Psychiatric: positive Other (Same facial droop, body weakness, and a little bit more muted affect today. Chronic findings for him today other than the mood) Lab Results 12/28/24 04:26 12/28/24 04:26 Other Labs: Lab Results x24hrs 12/28/24 12/28/24 12/28/24 Range/Units 11:28 07:40 04:26 WBC 6.2 (4.8-10.8) x10^3/uL RBC 3.52 L (4.70-6.10) 10^6/uL Hgb 8.6 L (14.0-18.0) g/dL Hct 27.8 L (42.0-52.0) % MCV 79.0 L (80.0-94.0) fL MCH 24.4 L (27.0-31.0) pg MCHC 30.9 L (32.0-36.0) g/dL RDW 18.3 H (12.0-15.0) % Plt Count 144 (130-450) 10^3/uL MPV 10.3 (7.4-11.4) fL Neut # (Auto) 4.0 (1.5-6.6) 10^3/uL Lymph # (Auto) 1.7 (1.5-3.5) 10^3/uL [place] # (Auto) 0.4 (0.0-1.0) 10^3/uL Eos # (Auto) 0.1 (0.0-0.7) 10^3/uL Baso # (Auto) 0.0 (0.0-0.1) 10^3/uL Absolute Nucleated RBC 0.00 x10^3/uL Nucleated RBC % 0.0 /100WBC Sodium 137 (135-145) mmol/L Potassium 3.8 (3.5-4.5) mmol/L Chloride 104 (101-111) mmol/L Carbon Dioxide 28 (21-32) mmol/L Anion Gap 5.0 L (6-13) BUN 17 (6-20) mg/dL Creatinine 1.1 (0.6-1.3) mg/dL Estimated GFR (MDRD) 65 L (>89) Glucose 86 (74-104) mg/dL POC Whole Bld Glucose 146 78 (70-100) mg/dL Calcium 8.3 L (8.5-10.3) mg/dL 12/27/24 12/27/24 Range/Units 20:44 16:28 WBC (4.8-10.8) x10^3/uL RBC (4.70-6.10) 10^6/uL Hgb (14.0-18.0) g/dL Hct (42.0-52.0) % MCV (80.0-94.0) fL MCH (27.0-31.0) pg MCHC (32.0-36.0) g/dL RDW (12.0-15.0) % Plt Count (130-450) 10^3/uL MPV (7.4-11.4) fL Neut # (Auto) (1.5-6.6) 10^3/uL Lymph # (Auto) (1.5-3.5) 10^3/uL [place] # (Auto) (0.0-1.0) 10^3/uL Eos # (Auto) (0.0-0.7) 10^3/uL Baso # (Auto) (0.0-0.1) 10^3/uL Absolute Nucleated RBC x10^3/uL Nucleated RBC % /100WBC Sodium (135-145) mmol/L Potassium (3.5-4.5) mmol/L Chloride (101-111) mmol/L Carbon Dioxide (21-32) mmol/L Anion Gap (6-13) BUN (6-20) mg/dL Creatinine (0.6-1.3) mg/dL Estimated GFR (MDRD) (>89) Glucose (74-104) mg/dL POC Whole Bld Glucose 137 227 (70-100) mg/dL Calcium (8.5-10.3) mg/dL Assessment/Plan Problem List (1) Encephalopathy: Impression: Currently encephalopathy is being attributed to his UTI from urinary retention. He has a chronic indwelling Rock catheter in place. He had improved the day after admission but he was still not back to baseline. Still confused, hallucinating. I changed him from observation status to inpatient status. Today is hospital day #3 for him. Part of his encephalopathy may need of cleared because his Enterococcus is not completely covered by the antibiotics if chosen. I will change him to p.o. Levaquin. Watch him overnight. If he stays stable plan is for discharge tomorrow after MRI. Qualifiers: Encephalopathy type: metabolic Qualified Code(s): G93.41 - Metabolic encephalopathy (2) Urinary tract infection: Impression: Day #3 of antibiotics. Currently on ceftriaxone. I stopped IV fluids since he was eating well. Today less so. He is urine cultures came back with Klebsiella pneumonia and Enterococcus faecalis. The Klebsiella is resistant to ampicillin, and indeterminant to nitrofurantoin. It is covered by the Rocephin. The Enterococcus is sensitive to everything.But it is not covered by Rocephin. Both of the bacteria covered by Levaquin. I will switch the patient to Levaquin today. Since IV penetration is equivalent to p.o. penetration, I will give p.o. Levaquin. I would recommend at least 6 more days of p.o. Levaquin when he goes home. 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 They interviewed a new caregiver today and they are now in the process of applying to [facility] to get that caregiver paid. This patient is 100% service-connected. When he is discharged, he will be discharged to home. (4) Prostate cancer: Impression: An ongoing problem. Patient has declined treatment. Currently symptomatic with urinary retention and has a chronic indwelling Rock catheter since October. (5) Type 2 diabetes mellitus, controlled: Impression: I thought I had withheld his sulfonylurea. I reconciled his medication list yesterday afternoon and mistakenly brought over his sulfonylurea to the inpatient side. He took 1 dose last night and 1 dose this morning. . Glucose is on the low At 78 this morning. I have stopped the sulfonylurea. This morning his glucose was 78. Before lunch he is 146. When he gets home, I would recommend that his glipizide be once a day and monitor his sugars carefully to avoid hypoglycemia. (6) Stroke: Impression: With left-sided residual. Dementia. But no aphasia and no dysphagia. Currently stable without any change. Basically wheelchair-bound. Usually has the strength to be able to transfer from chair to toilet, chair to chair, or chair to bed. Currently significantly deconditioned. When I send him home I will send him home with home health PT and OT. Because his family has noted a sudden change in him over the last couple of months, worse than usual, I will be ordering an MRI. Currently there is no nurse tech so it will have to be done tomorrow before he leaves. Qualifiers: CVA mechanism: occlusion Precerebral and cerebral artery: middle cerebral artery Laterality of affected vessel: left Qualified Code(s): I63.512 - Cerebral infarction due to unspecified occlusion or stenosis of left middle cerebral artery
[2024-12-29 04:08] LABS: FECAL OCCULT BLOOD (FIT) POSITIVE (NEGATIVE)
[2024-12-29 05:07] LABS: BUN - BLOOD UREA NITROGEN 19.0 mg/dL (6-20); CARBON DIOXIDE - CO2 27.0 mmol/L (21-32); CREATININE 1.0 mg/dL (0.6-1.3); GFR - MDRD 73.0 (>89)
[2024-12-29 05:30] LABS: HCT - HEMATOCRIT 29.9 % (42.0-52.0); HGB - HEMOGLOBIN 9.3 g/dL (14.0-18.0); MEAN PLATELET VOLUME 10.1 fL (7.4-11.4); NRBC ABSOLUTE COUNT (AUTO) 0.00 x10^3/uL; NUCLEATED RED BLOOD CELLS AUTO 0.0 /100WBC; PLT - PLATELET COUNT 126 10^3/uL (130-450); RED CELL DISTRIBUTION WIDTH 18.2 % (12.0-15.0)
[2024-12-29 07:39] VITALS: TEMP 97.7
--- NOTE | 2024-12-29 13:46 | MRI Report ---
PROCEDURE: MRI Brain WO INDICATIONS: ataxia, falls, sudden change in ms TECHNIQUE: Multisequence MRI of the brain was performed without intravenous contrast. COMPARISON: Correlation is made with head CT, 12/25/2024 FINDINGS: Image quality: Motion artifact is noted. Images were repeated, with some improvement. CSF Spaces: Basal cisterns are patent. No extra-axial fluid collections. Ventricles are normal in size and shape. Brain: Within the deep white matter of the right middle lobe, with mild involvement of basal ganglia, abnormal diffusion-weighted signal seen, with associated dark signal on the ADC map and mildly increased FLAIR signal. There is also mildly increased T1-weighted signal seen within these regions, as on series 6 images 12 through 14. No intracranial masses or hemorrhage. [place]/white matter interface is normal. Brainstem appears normal. Normal intravascular flow voids are present. Skull and face: Calvarium has normal marrow signal. Orbits appear normal. Incidental note is made of bilateral lens replacements. Sinuses: Sinuses and mastoids are clear. IMPRESSION: Subacute infarction can be seen involving the deep white matter of the right frontal lobe, with mild adjacent basal ganglia. Within this region, there is increased T1-weighted signal, which likely reflects petechial hemorrhage. Please consider short-term follow-up MRI with a hemosiderin sensitive sequence for further evaluation. Note: Findings and recommendations discussed by telephone with August at 1:43 PM [place] time on 12/29/2024. Reviewed by: Jason Beckett MD on 12/29/2024 12:44 PM SUZY Approved by: Jason Beckett MD on 12/29/2024 12:44 PM AKTRINA Station ID: [id number]
[2024-12-29 13:51] LABS: % IRON SATURATION 6.0 % (20-50)
[2024-12-29 14:21] VITALS: O2SAT 98
[2024-12-29 14:47] VITALS: BP 117/71
--- NOTE | 2024-12-31 07:16 | Discharge Summary ---
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 HOSPITAL COURSE Hospital Course: 1. UTI, complicated (CAUTI present on admission): UCx grew > 100,000 Klebsiella and Enterococcus faecalis. He was treated with levofloxacin based on susceptibility results with plan for 7 day course. 2. toxic/metabolic encephalopathy: suspected due to UTI, possible concussion from recent fall. Improved and back to basline by time of discharge. New subacute stroke found on MRI may also have contributed to confusion, and likely indicated a component of vascular dementia. 3. Prostate cancer, acute urinary retention with chronic dominguez: follows with Urology Dr. Kaye at [facility]. Discharged with dominguez in place. 4. 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 No new neuro deficits now other than confusion. MRI obtained due to declining cognitive function in recent weeks-months, which family state is rapidly progressing. He was continued on home statin and clopidogrel. Recommended neurology eval ([facility] and family will ask PMD for referral). 5. DM2: A1c 9. Some intermittent compliance with meds. Home regimen was glipizide ER 10 mg BID. Pt had some mildly low blood sugars while in the hospital. He reportedly has had poor po intake at home at times recently. Decreased glipizide to once daily. 6. malnutrition, micorcytic anemia: pt is on sulfasalazine for RA. Ordered B12, folate, fe studies on day of discharge. These tests can be followed up by PMD and futher managment outpt. ALLERGIES Allergies Allergy/AdvReac Type Severity Reaction Status Date / Time ciprofloxacin Allergy Unknown Verified 12/25/24 23:39 hydrochlorothiazide Allergy Unknown Verified 12/25/24 23:39 ketoconazole Allergy Unknown Verified 12/25/24 23:39 metformin Allergy Unknown Verified 12/25/24 23:39 metoclopramide Allergy Unknown Verified 12/25/24 23:39 MEDICATIONS Ambulatory Orders Medication Instructions Recorded Confirmed atorvastatin 20 mg tablet 20 mg PO DAILY PM 10/16/18 0 12/26/24 bupropion HCl 100 mg tablet 300 mg PO DAILY 10/16/18 0 12/26/24 clopidogrel 75 mg tablet 75 mg PO DAILY 10/16/1811/29 losartan 50 mg tablet 25 mg PO DAILY 10/16/1811/29 sulfasalazine 500 mg tablet 500 mg PO BID 10/16/18 tamsulosin 0.4 mg capsule 0.4 mg PO DAILY PM 10/16/18 12/26/24 cyanocobalamin (vitamin B-12) 1 ea PO DAILY 03/30/21 0 12/26/24 1,000 mcg capsule trazodone 50 mg tablet 150 mg PO QPM 03/30/2112/26 glipizide 2.5 mg tablet, extended 10 mg (4 x 2.5 mg) P O DAILY 12/29/24 12/26/24 release 24 hr days #120 tabs levofloxacin 250 mg tablet 500 mg (2 x 250 mg) PO TIMMY Y 6 12/29/24 days #12 tabs PHYSICAL EXAM AT DISCHARGE Vital Signs: Elderly man sitting in chair, NAD, sclera anicteric, MMM LCTAB, RRR, S1S2, no edema abd soft, NT, ND, BS+ dominguez in place draining clear yellow urine alert, oriented to person only, minimal verbal communication, poor memory and insight, calm and pleasant, CN 2-12 intact, strength 5/5 throughout except 4/5 LUE, sensation intact, normal tone, no tremor LABS 12/29/24 05:25 12/29/24 04:28 DIAGNOSTIC IMAGING Diagnostic Imaging Results Comments: brain MRI, 12/29/24: EXAM: [id number] MRI/BRWO ([id number]) PROCEDURE: MRI Brain WO INDICATIONS: ataxia, falls, sudden change in ms TECHNIQUE: Multisequence MRI of the brain was performed without intravenous contrast. COMPARISON: Correlation is made with head CT, 12/25/2024 FINDINGS: Image quality: Motion artifact is noted. Images were repeated, with some improvement. CSF Spaces: Basal cisterns are patent. No extra-axial fluid collections. Ventricles are normal in size and shape. Brain: Within the deep white matter of the right middle lobe, with mild involvement of basal ganglia, abnormal diffusion-weighted signal seen, with associated dark signal on the ADC map and mildly increased FLAIR signal. There is also mildly increased T1-weighted signal seen within these regions, as on series 6 images 12 through 14. No intracranial masses or hemorrhage. [place]/white matter interface is normal. Brainstem appears normal. Normal intravascular flow voids are present. Skull and face: Calvarium has normal marrow signal. Orbits appear normal. Incidental note is made of bilateral lens replacements. Sinuses: Sinuses and mastoids are clear. IMPRESSION: Subacute infarction can be seen involving the deep white matter of the right frontal lobe, with mild adjacent basal ganglia. Within this region, there is increased T1-weighted signal, which likely reflects petechial hemorrhage. Please consider short-term follow-up MRI with a hemosiderin sensitive sequence for further evaluation. Note: Findings and recommendations discussed by telephone with August at 1:43 PM [place] time on 12/29/2024. Reviewed by: Jason Beckett MD on 12/29/2024 12:44 PM [facility] FOLLOW UP Follow Up: Follow up with PMD in 1 week. Updated daughter and granddaughter on day of discharge. TIME SPENT Time Spent in Discharge (Minutes): 25 Discharge Plan Discharge Patient Disposition: 01 Home, Self Care Condition: Stable Medically Cleared Date:: 12/29/24 Prescriptions: New levofloxacin 250 mg Tablet 500 mg PO DAILY 6 Days Qty: 12 0RF Continued clopidogrel 75 MG tablet 75 mg PO DAILY losartan 50 MG tablet 25 mg PO DAILY atorvastatin 20 MG tablet 20 mg PO DAILY PM sulfasalazine 500 MG tablet 500 mg PO BID bupropion HCl 100 MG tablet 300 mg PO DAILY tamsulosin 0.4 MG capsule 0.4 mg PO DAILY PM trazodone 50 MG tablet 150 mg PO QPM cyanocobalamin (vitamin B-12) 1,000 MCG capsule 1 ea PO DAILY Changed glipizide 2.5 MG tablet extended release 24hr 10 mg PO DAILY 30 Days Qty: 120 0RF Activity Restrictions: Activity as Tolerated Diet: Regular Health Concerns: You have been prescribed an antibiotic called levofloxacin for your urinary tract infection. We have decreased the dose of glipizide (diabetes medicine) and recommend you continue discussing the plan for treatment of diabetes with your primary care provider. The brain MRI was completed and we are waiting for the results. We will contact you when the results are in. Contact your primary care provider or return to the hospital if you have fever, abdominal pain, problems with the catheter, vomiting, persistent diarrhea, or for any other concerns. Please schedule a follow-up appointment with your primary care provider for within 1 week. Print Language: Yi Patient Instructions: UTIs Catheter Linked Stand Alone Forms: PCP List Vitals documented within 30 minutes of discharge?: Yes (yes)
== END 2024-12-29 14:30 | disposition home health service (06) | DRG 698 ==
LOC: MS2 23:28 → ED 23:28 → MS2 12-26 12:41
PROVIDERS: ADMIT Specialist; ATTEND Specialist
DX: F02.80 Dementia in other diseases classified elsewhere, unspecified severity, without behavioral disturbance, psychotic disturbance, mood disturbance, and anxiety; Z63.5 Disruption of family by separation and divorce; Z79.899 Other long term (current) drug therapy; Z68.28 Body mass index [BMI] 28.0-28.9, adult; F05 Delirium due to known physiological condition; Y84.6 Urinary catheterization as the cause of abnormal reaction of the patient, or of later complication, without mention of misadventure at the time of the procedure; Z66 Do not resuscitate; Z91.83 Wandering in diseases classified elsewhere; T83.511A Infection and inflammatory reaction due to indwelling urethral catheter, initial encounter; G92.8 Other toxic encephalopathy; E11.65 Type 2 diabetes mellitus with hyperglycemia; I69.354 Hemiplegia and hemiparesis following cerebral infarction affecting left non-dominant side; Z87.891 Personal history of nicotine dependence; W19.XXXA Unspecified fall, initial encounter; Z91.81 History of falling; R63.8 Other symptoms and signs concerning food and fluid intake; Z79.84 Long term (current) use of oral hypoglycemic drugs; Z91.82 Personal history of military deployment; G30.9 Alzheimer's disease, unspecified; Z91.85 Personal history of military service; F01.50 Vascular dementia, unspecified severity, without behavioral disturbance, psychotic disturbance, mood disturbance, and anxiety; C61 Malignant neoplasm of prostate; R33.9 Retention of urine, unspecified; B96.1 Klebsiella pneumoniae [K. pneumoniae] as the cause of diseases classified elsewhere; Z99.3 Dependence on wheelchair; Z91.148 Patient's other noncompliance with medication regimen for other reason; E46 Unspecified protein-calorie malnutrition; B95.2 Enterococcus as the cause of diseases classified elsewhere; D50.9 Iron deficiency anemia, unspecified; N30.00 Acute cystitis without hematuria